=== PATIENT | female | born 1995 | race Caucasian/White ===

== ENCOUNTER 2018-07-24 08:01 | Emergency (ER) | payer OTHER, SELFPAY ==
[2018-07-24 08:02] VITALS: BP 148/94; PULSE 108; RESP 20; TEMP 36.2; O2SAT 97; BMI 45.3
--- NOTE | 2018-07-24 08:11 | EKG12_ITS ---
Test Reason : ANXIETY Blood Pressure : / mmHG Vent. Rate : 077 BPM Atrial Rate : 077 BPM P-R Int : 144 ms QRS Dur : 166 ms QT Int : 422 ms P-R-T Axes : 038 -49 090 degrees QTc Int : 477 ms Atrial-sensed ventricular-paced rhythm Abnormal ECG Confirmed by LUDIN RAMIREZ ([id number]), tape editor ANTHONY ESPINOZA ([id number] on 07/30/2018 2:44:34 PM Referred By: TERRI Confirmed By:LUDIN RAMIREZ
--- NOTE | 2018-07-24 08:12 | ED.VISSUMM ---
- ER Visit Summary Date of Service: 07/24/18 Chief Complaint: Anxiety History of Present Illness: The patient is a 22 F with history of anxiety who presents with increasing symptoms. 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 She states when she gets ill, she really starts to panic. She states that her daughter had stomach flu and she feels like she may be getting sick. She had one episode of diarrhea this morning. There was no blood in it. She denies abdominal pain. She states that she recently increased her dose of Zoloft from 50 mg to 100 mg within the past week. She is worried that she may just be adjusting to the medications and is not working. She denies being suicidal homicidal. She denies any chest pain. Physical Examination: Vital signs reviewed General: Well-nourished, well-developed Head: Normocephalic, atraumatic Eyes: Pupils equal and reactive, extraocular muscles intact Neck, supple, no lymphadenopathy Heart: Regular rate and rhythm Respiratory: No distress, clear bilaterally Abdomen: Soft, nontender, nondistended, no peritoneal signs Back: Nontender Extremities: Nontender, no edema, no cords Skin: Normal color no rash Neuro: Alert and oriented, no focal or lateralizing deficits Test Results: [] Emergency Department Course and Treatment: The patient is under a significant amount of stress. She is scheduled to have her pacemaker interrogated on Saturday. She states that she has been trying to put it out of her mind but feels like her anxiety has been very difficult to control. She is also been having some issues at work. I do feel that this is all anxiety driven and mediated. I did obtain an EKG. There is no evidence of pacemaker abnormality. She has an AV sensed rhythm with normal conduction. I obtained a chest x-ray which is also unremarkable. A long discussion with the patient. She was agreeable for laboratory evaluation. She was given oral Zofran and Ativan on reevaluation is resting much more comfortably. Her labs were obtained. The patient also has had a relatively new increase in her Zoloft and I do not feel that she is fully adjusted to this dose yet. The patient's labs were unremarkable. She is resting comfortably. We are going to arrange for outpatient counseling services for the patient. She will be discharged home. Treatment Plan: [] Disposition: Discharge Impression: 1. Acute anxiety This note was generated with [employer]isle[employer] dictation software. It may contain incorrect words, spelling, and punctuation that were not noted in review of the chart prior to signing ED Disposition - Plan for ED Patient: Chief Complaint: Anxiety Instructions: ED Stress React Referrals: Dariel Giron NP-C [Primary Care Provider] -
--- NOTE | 2018-07-24 08:30 | RAD_ITS ---
STUDY: X-RAY CHEST REASON FOR EXAM: Female, 22 years old. Chest pain. TECHNIQUE: PA and lateral views. COMPARISON: 07/14/2015. FINDINGS: Left subclavian approach dual chamber pacing lead tips are in the right atrium and right ventricle. The lungs are clear and expanded. There is no demonstrated pleural abnormality. Normal size heart. Normal mediastinum and tasia. Normal visualized pulmonary arteries. Normal visualized aortic arch and descending thoracic aorta. Minimal anterior wedging of the T12 superior endplate is presumably from remote injury. Normal visualized ribs, clavicles, and shoulders. There is no demonstrated abnormality of the visualized soft tissue structures of the upper abdomen. RAD/Chest PA and Lateral IMPRESSION: 1. Normal x-ray examination of the chest. 2. No significant interval changes when compared to 07/14/2015. Electronically Signed: Daljit Aviles MD at 9:05 EST , Service support ,
[2018-07-24] MEDS: LORazepam 1 MG Tablet PO (08:41)
[2018-07-24] MEDS: Ondansetron ODT 4 MG Tablet PO (08:41)
[2018-07-24 09:45] LABS: Absolute Lymphocyte Count 1.58 X10^3/ul (0.83-4.51); Absolute Neutrophil Count 4.5 X10^3/uL (2.0-7.7); Basophil# 0.01 X10^3/uL; Basophil% 0.2 % (0-1); Eosinophil# 0.05 X10^3/uL; Eosinophils% 0.8 % (0-5); Hematocrit 43.6 % (37-47); Hemoglobin 14.6 g/dl (12.0-15.0); Lymphocyte # 1.58 X10^3/ul (4.0); Lymphocyte % 24.4 % (19-41); Mean Corp Hgb Conc 33.5 g/gl (32-36); Mean Corpuscular Hgb 27.8 pg (27.0-32.0); Mean Platelet Vol. 9.1 fl (6.2-12.0); Monocyte# 0.37 X10^3/uL; Monocyte% 5.7 % (0-10); Neutrophil # 4.46 X10^3/uL (2.7-7.7); Neutrophil % 68.9 % (47-70); Platelet Count 338 K/mm3 (150-450); RBC Distribution Width SD 38.8 fl (35.1-43.9); Red Blood Count 5.25 M/mm3 (4.2-5.4); White Blood Count 6.5 K/mm3 (4.4-11.0)
[2018-07-24 09:55] LABS: POSITIVE COUNT NO; POSITIVE DIFFERENTIAL NO; POSITIVE MORPHOLOGY NO
--- NOTE | 2018-07-24 10:00 | CM.ED ---
SOCIAL WORK ASSESSMENT REFERRAL DATE: 07/24/18 DATE OF ASSESSMENT: 07/24/18 INFORMANT: SELF REFERRAL REASON FOR CONSULT: PT IN WITH ANXIETY INFORMATION OBTAINED FROM: PT, PT'S MOTHER AND GRANDMOTHER. LIVING ARRANGEMENTS: PT LIVES WITH FAMILY IN A 2 STORY HOME. PT AND MOTHER REPORT PT, PT'S AND 3 Y/O DAUGHTER LIVE ON THE 2ND LEVEL AND MOTHER LIVES ON 1ST FLOOR. 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 PT STATES WORK SCHEDULE IS 7:30A-1:45P. SUPPORTS: PT STATES GOOD SUPPORT FROM FAMILY AND . SOCIAL/FAMILY STRESSORS: PT REPORTS STRESS IN WORK AND HOME D/T MENTAL HEALTH. MENTAL HEALTH HX: PT WITH SIGNIFICANT HX OF ANXIETY. MOTHER AND GRANDMOTHER STATE DEPRESSION AND ANXIETY RUN IN THE FAMILY. GRANDMOTHER REPORTS PT, A CHILD, NEVER WANTED TO BE ALONE AND STRUGGLED WITH ANXIETY. PT VOICES ANXIETY WHEN DRIVING AND WHEN BEING LEFT ALONE. PT REPORTS EARLIER THIS WEEK SAT IN FRONT OF THE DOOR TO THEIR HOUSE AND BEGGED HER MOTHER NOT TO LEAVE FOR WORK. PT STATES HER ANXIETY CAN BE OVERWHELMING. PT STATES DOES NOT CURRENTLY FOLLOW WITH A COUNSELOR AND PCP IS PRESCRIBING HER MEDICATIONS. DIAGNOSES: ANXIETY MEDICATIONS: ZOLOFT, BUSPAR, ATIVAN SUBSTANCE ABUSE HX: PT DENIES ANY HX OF SUBSTANCE ABUSE AND STATES WORRIES ABOUT TAKING ATIVAN AND OTHER PRESCRIBED MEDICATIONS SHE DOES NOT WANT TO BECOME ADDICTED. EDUCATION ON MEDICATIONS PROVIDED. INTERVENTIONS: EDUCATION ON MENTAL HEALTH AND PHYSICAL HEALTH, MEDICATIONS, AND HEALTHY COPING. PT OPEN TO COUNSELING AND REQUESTS THIS WORKER SET UP APPOINTMENT. ASSESSMENT: PT IS A 22 Y/O FEMALE WHO PRESENTS TO THE ED WITH ANXIETY. PT STATES HAS BEEN FOLLOWING WITH JENNI DOMINIQUE WHO HAS BEEN PRESCRIBING HER MEDICATIONS. PT RECENTLY SWITCHED FROM LEXAPRO TO ZOLOFT AND PHYSICIAN ADDED BUSPAR AND ATIVAN. PT VOICES WORRY OVER TAKING ATIVAN D/T POSSIBILITY OF BECOMING ADDICTED TO THE MEDICATION. MUCH EDUCATION AND SUPPORT PROVIDED. PT AND FAMILY DENY ANY HX OF SUBSTANCE ABUSE FOR PT. PT'S GRANDMOTHER AND MOTHER WERE PRESENT FOR ASSESSMENT WITH PT'S PERMISSION. GRANDMOTHER AND MOTHER VOICE CONCERNS THAT PT'S ANXIETY IS MUCH WORSE AND HAS REALLY COME TO A HEAD THIS PAST WEEK. PT DENIES ANY SI OR HI. PT STATES IS NOT CURRENTLY FOLLOWING UP WITH COUNSELING SERVICES AND IS OPEN TO THIS WORKER SETTING UP INTAKE APPOINTMENT AT THE COUNSELING CENTER. DISCUSSED D/T HOLIDAYS MAY HAVE ISSUE WITH APPOINTMENT. PT AND FAMILY VERBALIZED UNDERSTANDING. CALL TO THE COUNSELING CENTER. APPOINTMENT SCHEDULED FOR 08/15/17 AT 8:30A. NURSING UPDATED AND IS TO UPDATE PT AND FAMILY. PLAN: HOME BEFORE WITH INTAKE APPOINTMENT SCHEDULED AT THE COUNSELING CENTER FOR 08/15/17 AT 8:30A.
[2018-07-24 10:10] LABS: AST(SGOT) 30 U/L (15-37); Alanine Aminotransfer ALT/SGPT 53 U/L (13-56); Albumin, Serum 4.3 g/dL (3.2-5.0); Alkaline Phosphatase 110 U/L (45-117); Anion Gap 8 (5-15); BUN 9 mg/dL (7-18); BUN/Creat Ratio 11.4 RATIO (10-20); Calcium,Total 9.4 mg/dL (8.5-10.1); Chloride 105 mmol/L (98-107); Creatinine, Serum 0.79 mg/dL (0.55-1.02); EST Glomerular Filtration Rate 95 mL/min (>60); Est Glom Filt Rate - Afr Amer 115 mL/min (>60); Estimated Creatinine Clearance 82.86 ml/min; Globulin 4.2 g/dL (2.2-4.2); Glucose 93 mg/dL (74-106); Potassium 3.7 mmol/L (3.5-5.1); Protein, Total 8.5 g/dL (6.4-8.2); Sodium Level 140 mmol/L (136-145)
[2018-07-24 11:34] VITALS: BP 140/88; PULSE 88; RESP 18; O2SAT 98
== END 2018-07-24 11:36 | disposition home or self-care (01) ==
LOC: ED 08:26
PROVIDERS: Emergency Provider Emergency Medicine; Family Provider Nurse Practitioner Primary Care; PCP Nurse Practitioner Primary Care
DX: F41.9 Anxiety disorder, unspecified (principal); F43.9 Reaction to severe stress, unspecified; R19.7 Diarrhea, unspecified; R11.0 Nausea; I44.2 Atrioventricular block, complete; Z79.899 Other long term (current) drug therapy; Z95.0 Presence of cardiac pacemaker
CPT/HCPCS: 36415; 71046; 80053; 85025; 93005; 99284

== ENCOUNTER 2018-08-18 10:50 | Emergency (ER) | payer OTHER, SELFPAY ==
[2018-08-18 10:53] VITALS: BP 128/76; PULSE 97; RESP 18; TEMP 36.8; O2SAT 95; BMI 45.8
[2018-08-18 10:58] VITALS: BP 128/76; PULSE 104; RESP 14; O2SAT 96
--- NOTE | 2018-08-18 11:06 | EKG12_ITS ---
Test Reason : SYNCOPE Blood Pressure : / mmHG Vent. Rate : 081 BPM Atrial Rate : 081 BPM P-R Int : 146 ms QRS Dur : 166 ms QT Int : 414 ms P-R-T Axes : 048 -55 077 degrees QTc Int : 480 ms Normal sinus rhythm Left axis deviation Non-specific intra-ventricular conduction block Possible Lateral infarct , age undetermined Abnormal ECG Confirmed by DAILY BOWENS, LEVI ([id number]), electronic news gathering editor ANTHONY ESPINOZA ([id number]) on 08/19/2018 5:24:47 PM Referred By: ZEKE Confirmed By:LEVI AMBROSIO MD
[2018-08-18 11:34] LABS: Absolute Lymphocyte Count 1.92 X10^3/ul (0.83-4.51); Absolute Neutrophil Count 4.7 X10^3/uL (2.0-7.7); Basophil# 0.02 X10^3/uL; Basophil% 0.3 % (0-1); Eosinophils% 1.4 % (0-5); Hematocrit 45.5 % (37-47); Hemoglobin 15.1 g/dl (12.0-15.0); Lymphocyte # 1.92 X10^3/ul (4.0); Lymphocyte % 27.1 % (19-41); Mean Corp Hgb Conc 33.2 g/gl (32-36); Mean Corpuscular Hgb 27.5 pg (27.0-32.0); Mean Corpuscular Volume 82.9 fL (81-99); Mean Platelet Vol. 9.6 fl (6.2-12.0); Monocyte# 0.37 X10^3/uL; Monocyte% 5.2 % (0-10); Neutrophil # 4.67 X10^3/uL (2.7-7.7); Neutrophil % 65.9 % (47-70); Platelet Count 378 K/mm3 (150-450); RBC Distribution Width CV 13.1 % (11.6-14.6); RBC Distribution Width SD 39.7 fl (35.1-43.9); Red Blood Count 5.49 M/mm3 (4.2-5.4); White Blood Count 7.1 K/mm3 (4.4-11.0)
[2018-08-18 11:35] LABS: POSITIVE COUNT NO; POSITIVE DIFFERENTIAL NO; POSITIVE MORPHOLOGY NO
[2018-08-18 11:48] LABS: Anion Gap 9 (5-15); BUN 14 mg/dL (7-18); BUN/Creat Ratio 18.8 RATIO (10-20); Calcium,Total 9.3 mg/dL (8.5-10.1); Chloride 103 mmol/L (98-107); Creatinine, Serum 0.75 mg/dL (0.55-1.02); EST Glomerular Filtration Rate 101 mL/min (>60); Est Glom Filt Rate - Afr Amer 122 mL/min (>60); Estimated Creatinine Clearance 87.28 ml/min; Glucose 85 mg/dL (74-106); Potassium 3.7 mmol/L (3.5-5.1); Sodium Level 138 mmol/L (136-145)
--- NOTE | 2018-08-18 12:26 | CT_ITS ---
STUDY: CTA CHEST REASON FOR EXAM: Female, 22 years old. Syncopal episode. RADIATION DOSAGE (If Supplied By Facility): CTDIvol = ( 16.72 ) mGy, DLP = ( 749.29 ) mGycm TECHNIQUE: The examination was performed with the intravenous administration of 100CC ml of Isovue 370 contrast material. Post-processing of the angiographic images was performed, with multiplanar reformation and 3D reconstruction. Individualized dose optimization techniques were used for this CT. COMPARISON: None. FINDINGS: Normal enhancement of the main pulmonary artery and right and left pulmonary arteries. Normal enhancement of the bilateral peripheral pulmonary arteries. There is no demonstrated pulmonary embolism. Normal thoracic aorta and visualized great vessels. There is no demonstrated aortic dissection. Normal heart and pericardium. Normal mediastinum. Normal hilar regions. Normal visualized trachea and bronchi. The lungs are well expanded. Normal pulmonary parenchyma. Normal pleura. Normal chest wall structures. Normal osseous structures. Small hiatal hernia. CT/CTA Chest W/WO Contrast IMPRESSION: Normal CTA chest examination, without a demonstrated pulmonary embolism or arterial dissection. Electronically Signed: Reji Burr MD at 13:32 EST Tel [phone], Service support ,
--- NOTE | 2018-08-18 14:02 | ED.VISSUMM ---
- ER Visit Summary Date of Service: 08/18/18 Chief Complaint: Syncope History of Present Illness: The patient is a 22 F who is arriving by squad following a syncopal episode. 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 She states that she lost vision in her eyes quite lightheaded and got nauseated and believes that she lost consciousness. She states that she improved and went to the nurse who felt that she was fine so she called her family doctor's office to schedule a follow-up appointment and they advised her that she might be having a stroke to come to the emergency room by the ambulance. She has a history of third-degree heart block and has a pacemaker. She follows at [facility]. Her right foot and ankle is in a boot orthosis due to fracture. She denies any chest pain or shortness of breath. Physical Examination: Afebrile vital signs are stable Gen: Well-nourished well-developed Head: Normocephalic atraumatic Eyes: Perrl EOMI ENT: TMs clear no rhinorrhea moist mucous membranes Neck: Supple no lymphadenopathy no JVD nontender CVS: Regular rate rhythm no murmurs normal S1-S2 Respiratory: No distress clear to auscultation bilaterally chest nontender Abdomen: Soft nontender nondistended normal bowel sounds no masses Back: Nontender Extremity: Nontender no edema Skin: Normal color no rash Neuro: alert orientated ?3 CN II-XII intact normal strength sensation reflexes gait cerebellar Psych: Normal affect normal mood Test Results: Prehospital EKG shows a paced rhythm. Her maker appears to be working here in the department. CBC BMP and troponin are negative. CTA of the chest was obtained to rule out PE as a source of syncope due to the lower extremity fracture and immobilization. This was negative. Emergency Department Course and Treatment: Nursing reports that while they are working with her she had another syncopal event. A cycle her blood pressure and it was actually higher than what it had been. She remained in a paced rhythm on the monitor. And she recovered. This would at least suggest that this was noncardiac and possible patient is otherwise been stable and should be discharged home to follow-up with her doctors Impression: 1. Syncope This note was generated with Dream Industriesation software. It may contain incorrect words, spelling, and punctuation that were not noted in review of the chart prior to signing ED Disposition - Plan for ED Patient: Disposition: Home or Assisted Living Chief Complaint: Syncope Instructions: ED Fainting Unkn Cause Referrals: Dariel Giron NP-C [Primary Care Provider] - 1 Week
[2018-08-18 14:19] VITALS: BP 109/65; PULSE 75; RESP 14; O2SAT 97
== END 2018-08-18 14:20 | disposition home or self-care (01) ==
PROVIDERS: Emergency Provider Emergency Medicine; Family Provider Nurse Practitioner Primary Care; PCP Nurse Practitioner Primary Care
DX: R55 Syncope and collapse (principal); Z95.0 Presence of cardiac pacemaker; Z79.899 Other long term (current) drug therapy
CPT/HCPCS: 71275; 80048; 84484; 85025; 93005; 99285; Q9967; A4216

== ENCOUNTER → 2018-09-09 08:51 | Outpatient (CLI) | payer OTHER, SELFPAY ==
[2018-08-18 10:53] VITALS: BMI 45.8
--- NOTE | 2018-09-10 17:41 | PCM.TILTTABL ---
- Summary Pre Test Resting HR: 87 Pre Test Resting BP: 124/75 Minimum Test HR: 73 Maximum Test HR: 162 Maximum Test BP: 138/65 Physician Tilt Table Report - Patient's Physicians Primary Care Physician: Alie Mejía Indications/Diagnosis: Syncope. Procedure Comments: The patient was brought to the noninvasive lab in the postabsorptive nonsedated state. The initial blood pressure was noted to be 124/75 mmHg with a heart rate of 87 bpm. The patient was then placed in the upright tilt position for 20 minutes. Patient complained of feeling clammy though her blood pressure and heart rate remained stable. After this the patient was put back in the recumbent position was given sublingual nitroglycerin and stood back up. Patient started feeling dizzy with increasing her heart rate to a peak of 162 bpm and dropping her blood pressure. She became diaphoretic and clammy. She was put back in the recumbent position with improvement in her heart rate and blood pressure. Of note was the fact that the patient has a permanent pacemaker and thus the minimum heart rate was noted to be 70 bpm. During post nitro evaluation the patient was noted to be in a sinus tachycardia with a left bundle branch pattern. Summary: The above appears to be consistent with an orthostatic or [place] physiology.
[2018-09-10 17:45] VITALS: BP 124/75; BP 138/65
== END ==
PROVIDERS: Family Provider Internal Medicine; PCP Internal Medicine; Referring Provider Internal Medicine; Visit Provider Internal Medicine
DX: R00.2 Palpitations (principal); R42 Dizziness and giddiness; F41.9 Anxiety disorder, unspecified
CPT/HCPCS: 93660; J7040; A4216

== ENCOUNTER 2018-10-30 05:38 | Day surgery (SDC) | payer OTHER, SELFPAY ==
[2018-10-08 14:40] VITALS: BMI 42.1
[2018-10-08 16:14] VITALS: BMI 45.8
[2018-10-29 08:59] VITALS: BP 129/72; PULSE 74; RESP 16; TEMP 36.8; O2SAT 97; BMI 43.9
--- NOTE | 2018-10-29 09:20 | SDCEKG_ITS ---
Test Reason : Blood Pressure : / mmHG Vent. Rate : 068 BPM Atrial Rate : 068 BPM P-R Int : 176 ms QRS Dur : 136 ms QT Int : 426 ms P-R-T Axes : 039 -54 035 degrees QTc Int : 452 ms Electronic ventricular pacemaker Confirmed by DAILY BOWENS, LEVI ([id number]), market editor TAWANDA CATES ([id number]) on 10/30/2018 1:17:00 PM Referred By: Elliott Naidu Confirmed By:LEVI AMBROSIO MD
[2018-10-30 06:07] LABS: Internal QC Validated? YES +Cl - CLEAR BKGD; Pregnancy, Urine Negative Negative
[2018-10-30 06:12] VITALS: BP 133/85; PULSE 75; RESP 16; TEMP 37.2; O2SAT 98; BMI 43.9
--- NOTE | 2018-10-30 07:15 | GALL_PTH ---
PATIENT: HALI CHAVES [place] [facility] [id number] AGE/SX: 22/ ROOM: RE10/30/[address]: Dr. Elliott Naidu MD : 1995 BED: DIS: 10/30/2018 SPEC #: [id number] RECD: 10/30/18 10:16 STATUS: ASHLEY CUCA #: [id number] AMARI: 10/30/18 07:[address]: Elliott Naidu DEPT: SURGICAL PATHOLOGY RECD BY: Eliseo Danielle ENTERED: 10/30/18 11:08 SP TYPE: MARCI SERRANO DR: Dr. Alie Mejía MD Tissues: Gallbladder, NOS Procedures: Surgery Specimen Level III HEADER OPERATION: Laparoscopic cholecystectomy PRE-OP DIAGNOSIS: Gallbladder sludge, right upper quadrant abdominal pain TISSUE SUBMITTED: Gallbladder MICROSCOPIC DIAGNOSIS Gallbladder, cholecystectomy: Mild chronic cholecystitis and cholesterolosis. No stones are identified in the container or in the gallbladder. SJ:adri 10/31/18 MICROSCOPIC DESCRIPTION Slides are reviewed. GROSS DESCRIPTION Received is one container labeled with the patient's name and designated gallbladder. The specimen consists of a gallbladder measuring 8.5 x 3 x 3 cm. The external surface is smooth and glistening. Focally, it is granular, hemorrhagic and contains cautery artifact. The lumen of the gallbladder contains yellow-green mucoid bile and no calculi. The mucosa is bile-stained and without any mass lesions. The gallbladder wall averages 0.1 cm in thickness and is free of mass lesions. Street Light Repairer sections of the gallbladder and the cystic duct are submitted in one cassette. / AM:adri 10/30/18 TC:3 CPT: 51898
[2018-10-30] MEDS: Cefazolin 2 GM in 0.9% Normal Saline 100 ML IV (07:20)
--- NOTE | 2018-10-30 07:33 | DCINST_ITS ---
Discharge Diet: Light diet - advance as tolerated Discharge Activity: May Not Drive - for 2-3 days or while taking narcotic pain medications., - - Do not drive, work heavy equipment or sign legal documents for 24 hours. May shower in (days): 1 - with the bandage in place. Additional Activity Instructions:: Pain medication may cause nausea. You should typically eat light foods as you take your pain medications. Pain medication may also cause constipation. If this is a problem for you, please discuss with your doctor. Call your doctor if your incision/area has: Continuous Slow Oozing, Sudden Increased Bleeding, Increased Pain/ Swelling, Increased Redness, Foul Smelling Discharge Call your doctor if you observe: Fever of 101 or Higher Suture Line Care: Avoid Pulling/Pushing, Avoid Pinching/Bending Additional Dressing/Incision Instructions:: Leave operative bandaids on for 2 days. When you remove dressing, leave Steri-Strips on until your follow-up appointment, or until the Steri-Strips fall off on their own. Allergies/Adverse Reactions: Allergies No Known Allergies Allergy (Verified 10/30/18 06:18) Medications to take at Discharge Lorazepam [Ativan] 1 mg PO TID PRN #10 tab 02/09/17 Ondansetron [Zofran Odt] 4 mg PO Q8H PRN PRN #10 tab 02/09/17 Buspirone HCl 10 mg PO QHS 08/18/18 Sertraline HCl [Zoloft] 150 mg PO QHS 08/18/18 Oxycodone HCl/Acetaminophen [Percocet 5/325] 1 - 2 tab PO Q4H PRN PRN 6 Days #30 tab 10/30/18 The following prescriptions were given: Oxycodone HCl/Acetaminophen [Percocet 5/325] 1 - 2 tab PO Q4H PRN PRN 6 Days #30 tab PRN Reason: Pain Primary Care Physician: Alie Mejía MD [Primary Care Provider] - Test Results: Test results from this visit will be discussed in further detail at your follow- up appointment, if applicable. Please Follow Up With: Elliott Naidu MD - Please call [phone] to schedule an appointment. When: 7 days after your surgery.
--- NOTE | 2018-10-30 07:33 | PCM.OPRPT ---
Problem List (1) Gallbladder sludge Status: Acute (2) Right upper quadrant abdominal pain Status: Acute Report of Operation Date of Procedure: 10/30/18 Pre-Operative Diagnosis: Gallbladder sludge. Right upper quadrant abdominal pain Post-Operative Diagnosis: Same Surgery/Procedure Performed:: Laparoscopic cholecystectomy Type of Anesthesia:: General Anesthesiologist: Miguel Masterson Specimen's removed: Gallbladder Estimated Blood Loss (mL): < 25 cc Fluids Replaced: 600 cc Description of Procedure: Patient was brought into the operating room. Placed in the supine position. Under excellent general endotracheal intubation the abdomen was sterilely prepped and draped in the usual fashion. Local was injected infraumbilically. Dissection was carried down to the fascia. The fascia was grasped with a [place]. Varies needle was placed inside the abdomen. The abdomen was insufflated to 15 torr. A 10/12 trocar was placed without difficulty. Patient was placed in the head up and rotated to the left position. A subxiphoid #5 trochars placed. Inferior to this another #5 trocar was placed. Laterally a #5 trocar was placed. All of these under direct visualization without injury to underlying structures. Fundus of the gallbladder was grasped retracted in a cephalad direction. Moderate amount of adhesions were taken off the gallbladder. I dissected the cystic duct and cystic artery and they were so close together and so small I clipped them both with he will out hemoclips proximally and distally. I ligated both the artery and the duct together. Deliver the gallbladder from the gallbladder bed I had good hemostasis. I placed a specimen specimen bag and delivered it through the umbilical port. Reinflated the abdomen. Inspected the liver bed. Good hemostasis was noted. I removed the trochars under direct visualization good hemostasis was noted. I closed the fascia the umbilical port with 0 Vicryl. Skin incisions were closed with septicum stitches of 4-0 Monocryl. Steri-Strips are applied. Sterile dressings were applied. The patient tolerated the procedure well. - Admit VTE Documentation VTE Present on Admission: No VTE Mechan Device Prophylaxis: SCD's VTE Pharm Prophylaxis ordered?: No Reason prophylaxis not ordered:: Treatment Not Indicated
[2018-10-30] MEDS: Bupivacaine Mpf 0.5% 30 ML VIAL (07:39)
[2018-10-30 08:18] VITALS: BP 109/85; BP 133/85; PULSE 72; RESP 16; TEMP 37.1; O2SAT 96
[2018-10-30 08:30] VITALS: BP 109/57; BP 133/85; PULSE 67; RESP 16; O2SAT 98
[2018-10-30 08:43] VITALS: BP 114/75; BP 133/85; PULSE 59; RESP 16; TEMP 36.2; O2SAT 96
[2018-10-30] MEDS: Acetaminophen 325 MG Tablet PO (08:55)
[2018-10-30] MEDS: oxyCODONE 5 MG Tablet PO (08:55)
[2018-10-30 10:00] VITALS: BP 102/48; BP 133/85; PULSE 55; RESP 16; TEMP 36.6; O2SAT 98
== END 2018-10-30 10:03 | disposition home or self-care (01) ==
LOC: SDC 05:39 → AC 05:39
PROVIDERS: Anesthesiology; Family Provider Internal Medicine; PCP Internal Medicine; Referring Provider Surgery; Visit Provider Surgery
PROC: (CPT 47562; principal; 2018-10-30 06:55)
DX: K81.1 Chronic cholecystitis (principal); K59.00 Constipation, unspecified; K21.9 Gastro-esophageal reflux disease without esophagitis; F41.9 Anxiety disorder, unspecified; Z79.899 Other long term (current) drug therapy; Z95.0 Presence of cardiac pacemaker; Z87.11 Personal history of peptic ulcer disease
CPT/HCPCS: 00790; 47562; 81025; 88304; 93005; J7120; J2405

== ENCOUNTER 2018-11-02 17:49 | Emergency (ER) | payer OTHER, SELFPAY ==
[2018-11-02 17:50] VITALS: BP 137/78; PULSE 73; RESP 18; TEMP 36.4; O2SAT 99; BMI 44.3
[2018-11-02 18:01] VITALS: O2SAT 96
--- NOTE | 2018-11-02 18:25 | ED.VISSUMM ---
- ER Visit Summary Date of Service: 11/02/18 Chief Complaint: Right shoulder pain, shortness of breath History of Present Illness: The patient is a 22 F who had a lap sandi on October 30. Patient states she woke from surgery with right shoulder pain. She took her Percocet as prescribed the first 2 days but stopped taking the medication today. She states today the right shoulder pain is worse. She initially had reported to nursing staff that she had some shortness of breath. She denies shortness of breath to me, but states that her shoulder moves when she takes a deep breath and that makes her shoulder hurt. She does not have any pleuritic chest pain. Physical Examination: Vital signs are unremarkable. Her respiratory rate is 18 and her pulse ox is 99% on room air. Patient is sitting upright in bed no acute distress. She is alert and talkative in no distress. Heart is regular rate and rhythm. Lung sounds are clear. Abdomen is soft with minimal tenderness. Incisions are healing well with no sign of infection. Right upper extremity examination was tenderness over the right suprascapular muscles. She has full range of motion of the right upper extremity. She has strong distal pulses and normal sensation. Test Results: [] Emergency Department Course and Treatment: We discussed possibility of right diaphragm irritation causing right shoulder pain as well as possible PE as the patient is a recent postop. Patient is quite adamant that she woke up from surgery with this pain and believes it is positional as her arm was held out to her side. We discussed risks and benefits of obtaining a CTA of the chest and she wishes to avoid that at this time. Her pain is reproducible over the musculature in the shoulder and she did stop her Percocet which likely led to her pain worsening today. Patient will restart her Percocet at home. We discussed tapering it slowly. She has a follow-up appointment with Dr. Naidu in 3 days. Treatment Plan: [] Disposition: Discharge Impression: Musculoskeletal right shoulder pain This note was generated with Un[employer] dictation software. It may contain incorrect words, spelling, and punctuation that were not noted in review of the chart prior to signing ED Disposition - Plan for ED Patient: Referrals: Alie Mejía MD [Primary Care Provider] -
--- NOTE | 2018-11-02 18:28 | ED.DEP ---
ED Disposition - Plan for ED Patient: Disposition: Home or Assisted Living Instructions: ED Sprain Shoulder Referrals: Elliott Naidu MD [STAFF PHYSICIAN] - Keep [facility] appointment
== END 2018-11-02 18:46 | disposition home or self-care (01) ==
LOC: ED 18:42
PROVIDERS: Emergency Provider Emergency Medicine; Family Provider Internal Medicine; PCP Internal Medicine
DX: M25.511 Pain in right shoulder (principal); R10.9 Unspecified abdominal pain; G89.18 Other acute postprocedural pain; F41.9 Anxiety disorder, unspecified; K21.9 Gastro-esophageal reflux disease without esophagitis; Z90.49 Acquired absence of other specified parts of digestive tract; Z79.899 Other long term (current) drug therapy
CPT/HCPCS: 99282

== ENCOUNTER → 2019-02-12 09:27 | Outpatient (CLI) | payer OTHER, SELFPAY ==
[2019-02-12 10:56] LABS: hCG Titer Quant., Serum 1432 mIU/mL (1-3)
== END ==
LOC: PAVLAB 09:28
PROVIDERS: Family Provider Internal Medicine; PCP Internal Medicine; Referring Provider Obstetrics & Gynecology; Visit Provider Obstetrics & Gynecology
DX: Z34.90 Encounter for supervision of normal pregnancy, unspecified, unspecified trimester (principal)
CPT/HCPCS: 36415; 84702; 86850; 86900

== ENCOUNTER → 2019-02-14 07:53 | Outpatient (CLI) | payer OTHER, SELFPAY ==
[2019-02-14 08:56] LABS: hCG Titer Quant., Serum 2908 mIU/mL (1-3)
== END ==
LOC: LAB 07:56
PROVIDERS: Family Provider Internal Medicine; PCP Internal Medicine; Referring Provider Obstetrics & Gynecology; Visit Provider Obstetrics & Gynecology
DX: Z34.90 Encounter for supervision of normal pregnancy, unspecified, unspecified trimester (principal)
CPT/HCPCS: 36415; 84702

== ENCOUNTER 2019-03-03 16:04 | Emergency (ER) | payer OTHER, SELFPAY ==
[2019-03-03] VITALS (7 sets, daily range): BP systolic 112–133; BP diastolic 59–73; PULSE 68–88; RESP 16–18; TEMP 37.1; O2SAT 90–100; BMI 43.7
[2019-03-03 16:49] LABS: Absolute Lymphocyte Count 2.61 X10^3/uL (0.83-4.51); Absolute Neutrophil Count 4.9 X10^3/uL (2.0-7.7); Basophil# 0.04 X10^3/uL; Basophil% 0.5 % (0-1); Eosinophil# 0.09 X10^3/uL; Eosinophils% 1.1 % (0-5); Hemoglobin 12.6 g/dL (12.0-15.0); Lymphocyte # 2.61 X10^3/ul (4.0); Lymphocyte % 32.2 % (19-41); Mean Corp Hgb Conc 33.2 g/dL (32-36); Mean Corpuscular Hgb 27.8 pg (27.0-32.0); Mean Corpuscular Volume 83.9 fL (81-99); Mean Platelet Vol. 9.4 fl (6.2-12.0); Monocyte# 0.44 X10^3/uL; Monocyte% 5.4 % (0-10); NRBC Flagged by Analyzer 0 % (0-5); Neutrophil # 4.91 X10^3/uL (2.7-7.7); Neutrophil % 60.7 % (47-70); Platelet Count 316 K/mm3 (150-450); RBC Distribution Width CV 13.2 % (11.6-14.6); RBC Distribution Width SD 40.2 fl (35.1-43.9); Red Blood Count 4.53 M/mm3 (4.2-5.4); White Blood Count 8.1 K/mm3 (4.4-11.0)
--- NOTE | 2019-03-03 16:55 | EKG12_ITS ---
Test Reason : SOB Blood Pressure : / mmHG Vent. Rate : 071 BPM Atrial Rate : 071 BPM P-R Int : 144 ms QRS Dur : 166 ms QT Int : 440 ms P-R-T Axes : 041 -62 075 degrees QTc Int : 478 ms Atrial-sensed ventricular-paced rhythm Abnormal ECG Confirmed by NISH BOWENS, PIPE ([id number]), editorial assistant TAWANDA CATSE ([id number]) on 03/05/2019 1:35:06 PM Referred By: SERAFIN/PAUL Confirmed By:PIPE MOCK MD
--- NOTE | 2019-03-03 16:57 | ED.VIS.GEN ---
History of Present Illness Chief Complaint: Shortness of Breath Informant: Patient Onset: Today, Hours Context: Sudden Onset Timing: Continuous Quality: Difficulty breathing and shortness of breath Location: Not applicable Current Severity: Mild Maximum Severity: Severe Worsened by: Nothing Relieved by: Nothing Associated Symptoms: No associated symptoms Narrative: Patient is a 23-year-old female with history of pots and third-degree heart block with placement of pacemaker 7 years ago who presents because of shortness of breath that occurred this morning after walking to [employer]. She became abruptly short of breath. She still complains of shortness of breath. She had obvious respiratory distress according to mother. She denies fever, chills night sweats. She denies runny nose, congestion, postnasal drainage or sore throat. She denies cough. She denies history of PE or DVT. She denies leg pain, swelling or discoloration. She is , 7 weeks gestation. This is her second . There is no complication with the first . Prior similar symptoms: No Recent Illness/Hospitalization: No - Past Medical History (1) POTS (postural orthostatic tachycardia syndrome) Status: Acute (2) Acid reflux Status: Acute (3) Anxiety Status: Acute (4) Gallbladder sludge Status: Acute (5) Hx of cardiac pacemaker Status: Acute Comment: 03/12/13 Past Medical History - Allergies and Home Meds Allergies/Adverse Reactions: Allergies No Known Allergies Allergy (Verified 03/03/19 16:04) Primary Care Physician: Alie Mejía MD [Primary Care Provider] - Prior records reviewed: Yes Lives: Spouse/ Significant Other, With Family Smoking Status: Never smoker Alcohol: None Drugs: None Review of Systems General: Denies: Chills, Fever, Malaise, Subjective, Sweats Eyes: Denies: Visual changes - bilaterally, Blurred Vision - bilaterally, Diplopia ENT: Denies: Bilateral ear pain, Rhinorrhea, Sore throat Cardiovascular: Denies: Chest pain, Palpitations, Heart racing Respiratory: Reports: Dyspnea. Denies: Cough, Sputum, Dyspnea on exertion, Orthopnea Gastrointestinal: Denies: Abdominal pain, Nausea, Vomiting, Diarrhea, Melena, Hematochezia Genitourinary: Denies: Dysuria, Hematuria, Frequency Musculoskeletal: Denies: Back pain, Extremity Pain Skin: Denies: Rash, Wounds Neurological: Denies: Headache, Weakness, Numbness Hematologic: Denies: Easy bruising, Easy bleeding Allergy: Denies: Uticaria, Swelling of the mouth, Swelling of the tongue Physical Exam Vital Signs/Narrative: Vital Signs Temp Pulse Resp BP Pulse Ox 03/03/19 16:07 16 97 03/03/19 16:04 98.8 F 71 18 133/73 H 97 Inital Vital Signs reviewed: Yes General: Well nourished, Well developed, No Acute Distress Head: Normocephalic, Atraumatic Eyes: Perrl, EOMI ENT: Moist mucous membranes, No rhinorrhea Neck: Supple, Nontender Cardiovascular: Regular rate, Regular rhythm, No murmurs Respiratory: No distress, Chest nontender, - - Breath sounds noted on forced expiration only. Negative for: CTA bilaterally Abdomen: Soft, Nontender, Nondistended, Normal bowel sounds Back: Nontender, Normal Inspection Extremities: Nontender, No edema, - - There is no asymmetry, swelling, discoloration, leg vein distention, palpable cords or tenderness along the distribution of the deep venous system. Skin: Normal color, No rash Neurological: Alert, Oriented x3, Cranial nerves II-XII grossly intact, Normal Strength, Normal Sensation Psychological: Normal affect, Normal Mood Diagnostic/Tx/Re-eval Chest X-Ray - ED: 2 View, Read by ED Physician, Normal, Heart, Mediastinum, Bony Structures, - - There is increased interstitial markings on the right compared to left. There is no obscuring of the heart border or diaphragm border. Impressions Chest X-Ray 03/03/19 18:01 IMPRESSION: No acute chest disease. Electronically Signed: Ever Alonzo MD at 18:17 EDT , Service support , 03/03/19 18:01 Chest PA and Lateral [RAD] Stat 03/03/19 18:36 CTA Chest W/WO Contrast [CT] Stat Laboratory Results 03/03/19 03/03/19 03/03/19 16:30 16:30 16:30 WBC 8.1 RBC 4.53 Hgb 12.6 Hct 38.0 MCV 83.9 MCH 27.8 MCHC 33.2 RDW Std Deviation 40.2 RDW Coeff of Rocael 13.2 Plt Count 316 MPV 9.4 Immature Gran % (Auto) 0.100 Neut % (Auto) 60.7 Lymph % (Auto) 32.2 [place] % (Auto) 5.4 Eos % (Auto) 1.1 Baso % (Auto) 0.5 Absolute Neuts (auto) 4.9 Absolute Lymphs (auto) 2.61 Nucleated RBC % 0 D-Dimer Quant (PE/DVT) 0.70 H* Sodium 140 Potassium 3.8 Chloride 106 Carbon Dioxide 26.0 Anion Gap 8 BUN 13 Creatinine 0.66 Estim Creat Clear Calc 98.33 Est GFR (MDRD) Af Amer 140 Est GFR (MDRD) Non-Af 116 BUN/Creatinine Ratio 19.7 Glucose 78 Calcium 9.1 With a normal chest x-ray per radiologist and concern for possible increased markings on the right by me with an elevated d-dimer will obtain CTA to evaluate for pulmonary embolus. Obtain consultation with second radiologist. She states the timing of the bolus is off and unable to evaluate for subsegmental PE. Since nurse reports she is dyspneic walking to the restroom but not hypoxic. Will discharge after she receives dose of Lovenox. Radiology will contact her for outpatient CTA of her chest. - EKG Initial EKG Interpretation: - - Atrial sensed ventricular paced rhythm with a rate of 71. MS interval is 144 ms. QS duration 166 ms. Halls to the left. - Medical Decision Making Patient is low risk for PE. D-dimer was ordered. Chest x-rays obtained because of abnormal oscillatory findings and she received an albuterol treatment. BMP was ordered per nurse protocol. CBC was ordered to assess white count and H&H. EKG was obtained per nurse protocol reveals atrial sensed ventricular paced rhythm with a ventricular rate of 71. ED Disposition - Plan for ED Patient: Disposition: Home or Assisted Living Diagnosis: Dyspnea on effort Instructions: ED Dyspnea Referrals: Alie Mejía MD [Primary Care Provider] - Additional Instructions: The radiologist will contact you and make arrangements for additional studies
[2019-03-03] MEDS: Albuterol 2.5 MG/3 ML VIAL.NEB. INHALATION (17:03)
[2019-03-03 17:05] LABS: Anion Gap 8 (5-15); BUN 13 mg/dL (7-18); BUN/Creat Ratio 19.7 RATIO (10-20); Calcium,Total 9.1 mg/dL (8.5-10.1); Chloride 106 mmol/L (98-107); Creatinine, Serum 0.66 mg/dL (0.55-1.02); EST Glomerular Filtration Rate 116 mL/min (>60); Est Glom Filt Rate - Afr Amer 140 mL/min (>60); Estimated Creatinine Clearance 98.33 ml/min; Glucose 78 mg/dL (74-106); Potassium 3.8 mmol/L (3.5-5.1); Sodium Level 140 mmol/L (136-145)
--- NOTE | 2019-03-03 17:46 | ED.RN ---
d dimer 0.[address] gaines aware
--- NOTE | 2019-03-03 18:01 | RAD_ITS ---
STUDY: X-RAY CHEST REASON FOR EXAM: Female, 23 years old. Short of breath and chest pain. TECHNIQUE: Frontal and lateral views of the chest. COMPARISON: 07/24/2018. FINDINGS: The lungs are clear and expanded. There is no demonstrated pleural abnormality. Normal size heart. Pacemaker is seen with leads terminating in the right atrium and right ventricle. Normal mediastinum and tasia. Normal visualized pulmonary arteries. Normal visualized aortic arch and descending thoracic aorta. Normal visualized thoracic spine. Normal visualized ribs, clavicles, and shoulders. There is no demonstrated abnormality of the visualized soft tissue structures of the upper abdomen. RAD/Chest PA and Lateral IMPRESSION: No acute chest disease. Electronically Signed: Ever Alonzo MD at 18:17 EDT , Service support ,
--- NOTE | 2019-03-03 18:36 | CT_ITS ---
STUDY: CTA CHEST REASON FOR EXAM: Female, 23 years old. Dyspnea. Elevated d-dimer. A small [facility] patient. patient. RADIATION DOSAGE (If Supplied By Facility): CTDIvol = ( 40.10 ) mGy, DLP = ( 638.40 ) mGycm TECHNIQUE: The examination was performed with the intravenous administration of 125ML IV Isovue 370. Post-processing of the angiographic images was performed, with multiplanar reformation and 3D reconstruction. Individualized dose optimization techniques were used for this CT. COMPARISON: 08/18/2018. FINDINGS: Suboptimal exam. Limited contrast enhancement of the pulmonary arteries from improper technique. Prominent contrast still seen in the right subclavian vein and yet, aorta has higher density than the pulmonary arteries. This indicates a much too broad contrast bolus, and it is impossible to exclude pulmonary emboli beyond the main right and left pulmonary arteries. Normal thoracic aorta and visualized great vessels. There is no demonstrated aortic dissection. Normal heart and pericardium. Normal mediastinum. Normal hilar regions. Normal visualized trachea and bronchi. The lungs are well expanded. Normal pulmonary parenchyma. Normal pleura. Normal chest wall structures. Normal osseous structures. Normal visualized upper abdomen. CT/CTA Chest W/WO Contrast IMPRESSION: Suboptimal exam. Improper contrast bolus injection and timing. Pulmonary emboli cannot be excluded on the right and left main pulmonary arteries. Lungs are clear. Electronically Signed: Ever Alonzo MD at 19:36 EDT , Service support ,
[2019-03-03] MEDS: Enoxaparin 100 MG/ML Syringe SC (23:31)
--- NOTE | 2019-03-03 23:36 | ED.RN ---
AFTER ADMINISTRATION OF LOVENOX PT C/O LIGHTHEADED AND PT HOB WAS LOWERED AND COOL COMPRESS TO FOREHEAD. PT C/O BURNING AT S.C. SITE, THIS NURSE EXPLAINED THAT IS A SIDE EFFECT OF THE MEDICATION. PT RESTING QUIETLY AT THIS TIME.
--- NOTE | 2019-03-03 23:40 | ED.RN ---
PT REPORTED THE BURNING STOPPED, I'M OKAY NOW
--- NOTE | 2019-03-04 12:35 | CT_ITS ---
STUDY: CTA CHEST REASON FOR EXAM: Female, 23 years old. Shortness of breath and chest pain. The patient is 7 weeks . RADIATION DOSAGE (If Supplied By Facility): CTDIvol = ( 15.82 ) mGy, DLP = ( 498.57 ) mGycm TECHNIQUE: The examination was performed with the intravenous administration of 100ml IV Isovue 370. Post-processing of the angiographic images was performed, with multiplanar reformation and 3D reconstruction. Individualized dose optimization techniques were used for this CT. COMPARISON: Comparison is made with prior examination dated March 03, 2019 and August 18, 2018. FINDINGS: There are isolated areas of nonocclusive filling defects in the subsegmental branches of the left upper lobe pulmonary artery as well as in the right lower lobe pulmonary artery. This is suggestive of pulmonary embolism. Normal thoracic aorta and visualized great vessels. There is no demonstrated aortic dissection. Normal heart and pericardium. Normal mediastinum. Normal hilar regions. Normal visualized trachea and bronchi. The lungs are well expanded. Normal pulmonary parenchyma. Normal pleura. Normal chest wall structures. Normal osseous structures. Normal visualized upper abdomen. CT/CTA Chest W/WO Contrast IMPRESSION: Nonocclusive pulmonary emboli seen in subsegmental branches of the left upper lobe and right lower lobe pulmonary arteries. Electronically Signed: Reji Burr, at 13:40 EDT , Service support ,
== END 2019-03-03 23:48 | disposition home or self-care (01) ==
PROVIDERS: Emergency Provider Emergency Medicine; Family Provider Internal Medicine; PCP Internal Medicine
DX: O26.891 Other specified pregnancy related conditions, first trimester (principal); R06.09 Other forms of dyspnea; I44.2 Atrioventricular block, complete; K21.9 Gastro-esophageal reflux disease without esophagitis; F41.9 Anxiety disorder, unspecified; O99.341 Other mental disorders complicating pregnancy, first trimester; Z95.0 Presence of cardiac pacemaker; Z3A.01 Less than 8 weeks gestation of pregnancy; Z79.899 Other long term (current) drug therapy
CPT/HCPCS: 71046; 71275; 80048; 85025; 85379; 93005; 94640; 94760; 96372; 99283; Q9967; A4216

== ENCOUNTER 2019-03-04 14:01 | Observation (INO) | payer OTHER, SELFPAY ==
[2019-03-03 16:04] VITALS: BMI 43.7
[2019-03-04 14:02] VITALS: BP 123/72; PULSE 77; RESP 16; TEMP 36.2; O2SAT 95; BMI 43.6
--- NOTE | 2019-03-04 15:31 | NURSING ---
HOSPITALIST FOR DR DUMONT
--- NOTE | 2019-03-04 16:11 | ED.VISSUMM ---
- ER Visit Summary Date of Service: 03/04/19 Chief Complaint: Shortness of breath History of Present Illness: The patient is a 23 F who presents with shortness of breath that began yesterday. Patient states that her told her she looked like she was having some shortness of breath with exertion a few days ago. Patient noticed it herself yesterday. Patient states her breathing is worse with any exertion. Patient states her breathing improved with rest. Patient admits to some tightness over the upper chest. Patient was seen here yesterday and had a CT scan done at that time which was nondiagnostic. Patient had a repeat outpatient CTA of the chest today which showed a nonocclusive PE of the left upper lobe and right lower lobe. Patient is 7 weeks . Physical Examination: Vital signs are stable. Patient is afebrile. Patient is in no acute distress. Oral mucosa is pink and moist. Neck is supple. Trachea is midline. There is no JVD noted. Heart was regular rate and rhythm. Lungs are clear and equal bilateral. Abdomen is soft. Bowel sounds are normal. There is no tenderness. There is no guarding noted. Skin is warm dry. Cranial nerves II through XII are intact. There are no focal motor or sensory deficits noted. Extremities are intact. There is no calf tenderness or edema. Test Results: PT with INR and PTT were obtained. Emergency Department Course and Treatment: Patient was started on heparin IV drip. Case was discussed with Dr. Su and Dr. Leroy. Patient will be admitted to the medical service. Patient and family understood and were agreeable with the plan. All questions were answered. Disposition: Admit to hospital Impression: 1. Pulmonary embolism This note was generated with [employer] dictation software. It may contain incorrect words, spelling, and punctuation that were not noted in review of the chart prior to signing ED Disposition - Plan for ED Patient: Disposition: Acute Care Hospital [facility] Diagnosis: Pulmonary embolism Referrals: Alie Mejía MD [Primary Care Provider] -
--- NOTE | 2019-03-04 16:11 | NURSING ---
102 PULMONARY EMBOLISM ANDREW
[2019-03-04] MEDS: HEPARIN/D5w 25,000 UNITS 25,000 UNITS/250 ML IV.SOLN. 15 UNITS IV (16:19)
[2019-03-04] MEDS: Heparin Injection (Vial) 5,000 UNIT/ML VIAL 8000 UNIT IV (16:21)
[2019-03-04 16:23] LABS: Prothrombin Time (Protime)PT. 13.3 SECONDS (11.7-14.9)
[2019-03-04 16:24] LABS: Partial Thromboplast Time 33.2 Seconds (24.1-36.2)
[2019-03-04 17:26] VITALS: BP 116/67; PULSE 71; PULSE 73; RESP 16; TEMP 37; O2SAT 98; BMI 43.2
--- NOTE | 2019-03-04 17:40 | US_ITS ---
STUDY: FIRST TRIMESTER OBSTETRICAL ULTRASOUND REASON FOR EXAM: Female, 23 years old. Viability. LMP: January 09, 2019. TECHNIQUE: Transvaginal TECHNICAL QUALITY: Adequate. PRIOR ULTRASOUND: None. FINDINGS: There is visualization of a single gestational sac in a normal intrauterine position. The mean sac diameter (MSD) measures 2.93 cm, indicating an estimated gestational age (EGA) of 8 weeks, 2 days. The gestational sac shape is within normal limits. There is a visualized yolk sac. The yolk sac measures 0.3 cm. The placenta is non-visualized. There is visualization of a live embryo. The crown-rump length (CRL) measures 1.31 cm, indicating an estimated gestational age (EGA) of 7 weeks, 4 days. There is demonstrated cardiac activity with a heart rate of 160 bpm. The estimated gestation age (EGA) by LMP is 7 weeks, 5 days. The estimated date of delivery (SANDRO) by LMP is October 16, 2019. The estimated gestation age (EGA) by US is 8 weeks, 0 days. The estimated date of delivery (SANDRO) by US is October 14, 2019. The uterus measures 9.6 x 8.8 x 5.1 cm. There is no demonstrated uterine fibroid. The cervix is closed. The right ovary measures 3.6 x 2.5 x 1.9 cm. There is a 1.5 cm corpus luteum cyst There is no visualized right adnexal mass or complex lesion. The left ovary measures 3.0 x 2.3 x 1.3 cm. There are multiple follicles of the left ovary without a dominant cyst. There is no visualized left adnexal mass or complex lesion. There is no fluid in the cul de sac. Minimal debris is seen within the urinary bladder. US/Init OB < 14Wks US IMPRESSION: 1. Live single intrauterine at 8 weeks, 0 days. SANDRO is October 14, 2019. 2. heart rate of 160 bpm. 3. Right ovarian corpus luteum cyst. Electronically Signed: Esvin Mora DO at 19:07 EDT Tel [phone], Service support ,
--- NOTE | 2019-03-04 18:44 | PCM.HP.STD ---
Problem List (1) Bilateral pulmonary embolism Status: Acute History of Present Illness Date of Admission: 03/04/19 Chief Complaint: Chest discomfort and shortness of breath The patient is a 23 year old F who is 7 weeks . Presented to the emergency department because of a few days history of chest pain and shortness of breath with exertional dyspnea. Had a CT pulmonary angiogram done about 2 days ago which was inconclusive and then had another one done today which clearly showed bilateral pulmonary emboli involving the left upper lobe segmental arterial bed and the right lower lobe segmental arterial bed. She denies any fever or palpitations. Denies any lightheadedness, dizziness or syncopal episodes. Patient has a prior history of DVT or PEs. Has no prior episodes of any arterial vascular events. Denies any history of miscarriages, late demise or any connective tissue diseases or disorders. No family history of thrombophilic disorders. Patient is not on any oral contraceptive pills. [] Past Medical History Medical History: Medical History (Last Reviewed 10/08/18 @ 16:13 by Elliott Naidu MD) Acid reflux (Acute) K21.9 Constipation (Acute) K59.00 Nausea (Acute) R11.0 Shortness of breath (Acute) R06.02 Anxiety (Acute) F41.9 Fatigue (Acute) R53.83 Allergies No Known Allergies Allergy (Verified 03/04/19 14:01) Home Medications: Ambulatory Orders Medication Instructions Recorded Buspirone HCl 10 mg PO QHS 08/18/18 Sertraline HCl [Zoloft] 100 mg PO QHS 08/18/18 ondansetron 4 mg disintegrating 4 mg PO Q8H PRN PRN #60 tab 02/23/19 tablet Hydroxyzine Pamoate 25 mg PO TID PRN PRN 03/04/19 Sertraline HCl [Zoloft] 50 mg PO QHS 03/04/19 Surgical History: Surgical History (Last Reviewed 10/08/18 @ 16:13 by Elliott Naidu MD) Hx of cardiac pacemaker (Acute) Z95.0 03/12/13 Hx of wisdom tooth extraction (Acute) K08.409 Lives: With Family Smoking Status: Never smoker Review of Systems Constitutional: Denies: Anorexia, Chills, Fever, Night Sweats, Malaise, Weakness, Fatigue Eyes: Denies: Pain HEENT: Denies: Difficulty Hearing Cardiovascular: Reports: Chest Pain. Denies: Edema, Orthopnea, Syncope Respiratory: Reports: Pleuritic Pain, Shortness of Breath, Shortness of breath upon exertion. Denies: Cough, Hemoptysis Gastrointestinal: Denies: Abdominal Pain, Vomiting Genitourinary: Denies: Dysuria Comment: Other systems reviewed and essentially negative. VTE Information - Inpt Only VTE Present on Admission: Yes VTE Mechan Device Prophylaxis: None VTE Pharm Prophylaxis ordered?: No Reason prophylaxis not ordered:: Treatment Not Indicated Patient Problems: Active and Suspected Problems (Last Reviewed 10/08/18 @ 16:13 by Elliott Naidu MD) Pulmonary embolism (Acute) Bilateral pulmonary embolism (Acute) - Physical Exam General: Alert, Oriented x3, Cooperative, No apparent distress HEENT: Atraumatic, PERRLA Oral: Moist Mucosa, No Gingival or Mucosal Lesions/ Ulcerations Neck: Supple, No JVD Lungs: Clear to auscultation, Normal air movement, No rhonchi, No wheeze, No rales Cardiovascular: Regular rate, Regular Rhythm, Normal S1, Normal S2, No murmurs, No Ectopic Activity Abdomen: Obese Extremities: No clubbing, No cyanosis Skin: No rashes, No breakdown Musculoskeletal: No Tenderness to Palpation of Joints or Extremities Neurological: Cranial nerves II-XII grossly intact, Neuro grossly intact, Motor Exam 5/5 strength throughout Psych/Mental Status: Normal Affect, Appropriate Vital Signs Temp Pulse Resp BP Pulse Ox 98.6 F 73 16 116/67 98 03/04/19 17:26 03/04/19 17:26 03/04/19 17:26 03/04/19 17:26 03/04/19 17:26 Oxygen Delivery Method Room Air Weight: 103.8 kg Body Mass Index (BMI) 43.2 Laboratory Tests Past 24 Hrs 03/04/19 15:58 PT 13.3 INR 1.0 APTT 33.2 Assessment/Plan All Active Problems (Last Reviewed 10/08/18 @ 16:13 by Elliott Naidu MD) Gallbladder sludge (Acute) Right upper quadrant abdominal pain (Acute) POTS (postural orthostatic tachycardia syndrome) (Acute) Pulmonary embolism (Acute) Bilateral pulmonary embolism (Acute) Hx of cardiac pacemaker (Acute) Hx of wisdom tooth extraction (Acute) Acid reflux (Acute) Constipation (Acute) Nausea (Acute) Shortness of breath (Acute) Anxiety (Acute) Fatigue (Acute) #1. Acute bilateral pulmonary embolism in a 7-week-old young lady. Patient started on heparin by weight. Tomorrow we will start patient on low molecular weight heparin either twice a day or daily. I expect patient should be stable enough to be discharged tomorrow. Would likely need chronic anticoagulation with Lovenox for the rest of her . Recommended and advised that hormonal contraception be avoided in the future. Obstetrics consulted. 2. Acute obesity. Lifestyle modifications following delivery. 3. History of POTS. Stable at this time. 4. History of complete heart block. Status post pacemaker. Fairly well. Code Visit Inpatient E&M: 60358 Init Hosp L3
[2019-03-04 19:00] VITALS: PULSE 79
[2019-03-04 21:30] VITALS: BP 107/68; PULSE 69; RESP 16; TEMP 36.8; O2SAT 96
[2019-03-04] MEDS: busPIRone 5 MG Tablet 10 MG PO (21:34)
[2019-03-04] MEDS: Sertraline 100 MG Tablet PO (21:34)
[2019-03-04] MEDS: Sertraline 50 MG Tablet PO (21:34)
[2019-03-04] MEDS: hydrOXYzine PAM 25 MG Capsule PO (22:30)
[2019-03-05] VITALS (8 sets, daily range): BP systolic 108–115; BP diastolic 62–69; PULSE 63–83; RESP 16–18; TEMP 36.6–36.8; O2SAT 95–97
--- NOTE | 2019-03-05 00:12 | NURSING ---
Pt doesnt like needles refused blood glucose check at this time
--- NOTE | 2019-03-05 00:57 | CCHN_ITS ---
Hospitalist Note The patient is 23-year-old, 7-week admitted with bilateral PE, subsegmental branches of left upper lobe pulmonary artery and right lower lobe pulmonary artery. Currently patient is on IV heparin drip but unable to get PTT because of hard stick as tried by multiple transit worker and nurses. Heparin drip is being stopped. Start on Lovenox 1 mg/kg body weight every 12 hourly after 6-hour, that will be 7 AM. This was discussed with outside sales account executive Dr. Mayorga and he advised to continue Lovenox throughout the until delivery. Patient can follow-up with hematology clinic after discharge.
[2019-03-05] MEDS: Enoxaparin 100 MG/ML Syringe SC (06:59)
[2019-03-05] MEDS: 0.9% NaCl Peripheral Flush Adult/Peds IV (07:03)
[2019-03-05 07:36] LABS: Bedside Glucose 76 mg/dL (70-110)
--- NOTE | 2019-03-05 11:46 | DCINST_ITS ---
- Discharge Diagnoses Current Active Problems: Current Active and Chronic Problems (Last Reviewed 10/08/18 @ 16:13 by Elliott Naidu MD) Pulmonary embolism (Acute) Bilateral pulmonary embolism (Acute) You will use the following diet at home:: No restrictions Discharge Activity: Return to Normal Activity Call your doctor if you observe: Shortness of breath, Dizziness, Fainting spells, Chest pain Allergies/Adverse Reactions: Allergies No Known Allergies Allergy (Verified 03/04/19 14:01) Medications to take at Discharge Buspirone HCl 10 mg PO QHS 08/18/18 Sertraline HCl [Zoloft] 100 mg PO QHS 08/18/18 ondansetron 4 mg disintegrating tablet 4 mg PO Q8H PRN PRN #60 tab 02/23/19 Hydroxyzine Pamoate 25 mg PO TID PRN PRN 03/04/19 Sertraline HCl [Zoloft] 50 mg PO QHS 03/04/19 Enoxaparin [Lovenox] 100 mg SUBCUT Q12 #60 syringe 03/05/19 The following prescriptions were given: Enoxaparin [Lovenox] 100 mg SUBCUT Q12 #60 syringe Transmission Status: Pending to [id number] Primary Care Physician: Alie Mejía MD [Primary Care Provider] - Please follow up with your Primary Care Physician in: 3-5 Days Test Results: Test results from this visit will be discussed in further detail at your follow- up appointment, if applicable. Please Follow Up With: Leora Mayorga MD When: 1 Week Please Follow Up With: Anabel Su MD When: As scheduled Proposed Discharge Date: 03/05/19
--- NOTE | 2019-03-05 11:50 | PCM.DC.SUM ---
<Joycelyn Hills - Last Filed: 03/05/19 12:16> Discharge Date and Diagnosis Date of Admission: 03/04/19 Date of Discharge: 03/05/19 - Primary Discharge Diagnosis Active and Suspected Problems (Last Reviewed 10/08/18 @ 16:13 by Elliott Naidu MD) 1. Acute bilateral pulmonary embolism 2. First trimester 3. History of POTS 4. History of complete heart block status post pacemaker 5. Anxiety/depression 6. Obesity Hospital Course and Treatment Imaging Results: Diagnostic Data Obstetrics Ultrasound 03/04/19 17:40 IMPRESSION: 1. Live single intrauterine at 8 weeks, 0 days. SANDRO is October 14, 2019. 2. heart rate of 160 bpm. 3. Right ovarian corpus luteum cyst. Electronically Signed: Esvin Mora DO at 19:07 EDT Tel [phone], Service support , Dr. Su- PLATEN DRIER OPERATOR Operations: None Procedures: None Summary of Care Provided: The patient is a 23 year old F admitted 03/04/19 due to shortness of breath. 1. Acute bilateral pulmonary embolism-chest CTA shows nonocclusive pulmonary emboli seen in the subsegmental branches of the left upper lobe and right lower lobe pulmonary arteries. Patient hemodynamically stable. No hypoxia noted. Patient was initiated on Lovenox 1 mg/kg every 12 hours which she will continue taking for the remainder of her . Hospitalist discussed with hematology, Dr. Mayorga who agrees with treatment plan. Follow with hematology at discharge in 1 week. Follow-up with primary care provider in 3 to 5 days. Follow-up with OB as scheduled. 2. First trimester - Dr. Su consulted during admission. Continue outpatient follow up as scheduled. 3. History of POTS-stable. 4. History of complete heart block status post pacemaker-stable. 5. Anxiety/depression-continue home buspirone, sertraline, hydroxyzine regimen. 6. Obesity-encouraged diet and lifestyle modifications following . Patient seen and examined prior to discharge. Physical assessment as noted below. Patient is stable for discharge with follow up recommendations as noted above. This patient was seen by SILVIA Esposito under the supervision of Dr. Lott. - Physical Exam General: Alert, Oriented x3, Cooperative HEENT: Atraumatic, PERRLA, EOMI, Normocephalic Neck: Supple, No JVD, Negative Carotid Bruits Lungs: Clear to auscultation, Normal air movement Cardiovascular: Regular rate, Regular Rhythm, Normal S1, Normal S2, No murmurs Abdomen: Bowel Sounds Present, Soft, Non Tender, Non-Distended, Obese Extremities: No clubbing, No cyanosis, No edema, Capillary Refill Less than 3 Seconds Skin: No rashes, No breakdown Musculoskeletal: No Tenderness to Palpation of Joints or Extremities Neurological: Cranial nerves II-XII grossly intact, Neuro grossly intact Psych/Mental Status: Normal Affect, Appropriate Vital Signs Temp Pulse Resp BP Pulse Ox 98.3 F 73 16 108/62 96 03/05/19 09:13 03/05/19 10:00 03/05/19 09:13 03/05/19 09:13 03/05/19 09:13 Oxygen Delivery Method Room Air Weight: 228 lb 13.437 oz Body Mass Index (BMI) 43.2 Intake and Output for Last 24 Hours 03/03/19 03/04/19 03/05/19 23:59 23:59 23:59 Intake Total 314 / 314 16.1 / 16.1 Balance 314 / 314 16.1 / 16.1 Laboratory Tests Past 24 Hrs 03/04/19 15:58 PT 13.3 INR 1.0 APTT 33.2 POC Glucose 03/05/19 07:29 POC Glucose 76 Discharge Diet: No Restrictions Discharge Activity: Return to Normal Activity Call your doctor if you observe: Shortness of breath, Dizziness, Fainting spells, Chest pain Home Medications: Medications to take at Discharge Buspirone HCl 10 mg PO QHS 08/18/18 Sertraline HCl [Zoloft] 100 mg PO QHS 08/18/18 ondansetron 4 mg disintegrating tablet 4 mg PO Q8H PRN PRN #60 tab 02/23/19 Hydroxyzine Pamoate 25 mg PO TID PRN PRN 03/04/19 Sertraline HCl [Zoloft] 50 mg PO QHS 03/04/19 Enoxaparin [Lovenox] 100 mg SUBCUT Q12 #60 syringe 03/05/19 Following Prescrptions Were Given to Patient: Enoxaparin [Lovenox] 100 mg SUBCUT Q12 #60 syringe Transmission Status: Received by [id number] Primary Care Physician: Alie Mejía MD [Primary Care Provider] - Please follow up with your Primary Care Physician in: 3-5 Days Please Follow Up With: Leora Mayorga MD When: 1 Week Please Follow Up With: Anabel Su MD When: As scheduled Disposition: Home Minutes spent on discharge:: 35 Patient Condition:: Stable Medical Necessity - Tobacco Use Smoking Status: Never smoker Meaningful Use Info Meaningful Use Diagnoses (Choose all that apply): VTE - VTE Anticoag overlap given w/in hospital stay or rx'd at dc?: Yes Pt receive overlap for 5 days?: Yes <Ankit Lott - Last Filed: 03/05/19 14:57> Hospital Course and Treatment Summary of Care Provided: The patient is a 23 year old F who is in her first trimester of presented with shortness of breath. CTA obtained demonstrated nonocclusive bilateral pulmonary embolism admitted to monitored bed for subsequent management. Patient was treated with Lovenox prescription was written for discharge. Plan is for patient to follow-up with hematology as well as a PLATEN DRIER OPERATOR as outpatient Was seen and examined and her questions answered on the day of her discharge. Discharge course as documented above by Joycelyn Hills NP?C - Physical Exam Vital Signs Temp Pulse Resp BP Pulse Ox 98.1 F 83 18 115/69 95 03/05/19 13:46 03/05/19 13:46 03/05/19 13:46 03/05/19 13:46 03/05/19 13:46 Oxygen Delivery Method Room Air Weight: 103.8 kg Body Mass Index (BMI) 43.2 Intake and Output for Last 24 Hours 03/03/19 03/04/19 03/05/19 23:59 23:59 23:59 Intake Total 314 / 314 16.1 / 16.1 Balance 314 / 314 16.1 / 16.1 Laboratory Tests Past 24 Hrs 03/04/19 15:58 PT 13.3 INR 1.0 APTT 33.2 POC Glucose 03/05/19 07:29 POC Glucose 76 Code Visit OBSV E&M: 12587 Observation care discharge
--- NOTE | 2019-03-05 13:27 | CASEMGMT ---
FOX CHERRY assessment: Face to Face with patient for initial transition planning/care coordination assessment. FOX CHERRY introduced self and role at [facility], pt voices understanding and consents to assessment at this time. Pt is lying in bed in no distress at this time. Pt is A/Ox4 at this time and answers all questions appropriately at this time. Care providers, pharmacy, and demographics verified at this time. PCP: Kym Specialists: Aga, boiler/chiller technician Preferred Pharmacy: [facility] [place] Insurance: [facility] Prescription Benefit: [facility] Living Will/HPOA: Pt states does not have LW/HPOA and declines info at this time. LNOK: Reggie Navarro, ; Concha Sanchezorrow, mother Living Arrangements: Pt lives with , daughter and mother and states no concerns at home at this time. Pt states is independent with ADL's. Transportation: Pt states drives self and states no tranportation concerns at this time. DME/HHC: Pt states no current DME or need for any at this time. Pt to be sent home on Lovenox at discharge and med e-scribed to [facility] previously. Call to [facility] pharmacy and per pharmacist, Lovenox is covered with a $0 co-pay at this time. Pt is updated at this time, voices understanding. Pt states no concerns with going home at time of discharge. 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 Pt states does not smoke or drink ETOH. Pt states no further concerns/needs at this time. CM to follow for any further discharge planning/needs. Advised pt to ask for CM if any further questions/concerns/needs arise, pt voices understanding. Pt Goal: Home Plan: Home [place]
== END 2019-03-05 13:54 | disposition home or self-care (01) ==
LOC: ED 16:15 → PCU 03-05 06:53
PROVIDERS: Admitting Provider Internal Medicine; Emergency Provider Emergency Medicine; Family Provider Internal Medicine; PCP Internal Medicine; Visit Provider Internal Medicine
DX: O88.211 Thromboembolism in pregnancy, first trimester (principal); Z3A.01 Less than 8 weeks gestation of pregnancy; K21.9 Gastro-esophageal reflux disease without esophagitis; F41.9 Anxiety disorder, unspecified; O99.341 Other mental disorders complicating pregnancy, first trimester; E66.9 Obesity, unspecified; O99.211 Obesity complicating pregnancy, first trimester; O99.411 Diseases of the circulatory system complicating pregnancy, first trimester; I44.2 Atrioventricular block, complete; Z86.718 Personal history of other venous thrombosis and embolism; Z79.899 Other long term (current) drug therapy; Z95.0 Presence of cardiac pacemaker
CPT/HCPCS: 76801; 82962; 85610; 85730; 96365; 96366; 96372; 96376; 99218; 99283; A4216; G0378

== ENCOUNTER 2019-03-06 09:54 | Emergency (ER) | payer OTHER, SELFPAY ==
[2019-03-04 17:26] VITALS: BMI 43.2
[2019-03-06 09:55] VITALS: BP 127/70; PULSE 98; RESP 17; TEMP 36.4; O2SAT 96; BMI 43.2
--- NOTE | 2019-03-06 10:11 | EKG12_ITS ---
Test Reason : SOB Blood Pressure : / mmHG Vent. Rate : 075 BPM Atrial Rate : 075 BPM P-R Int : 140 ms QRS Dur : 166 ms QT Int : 424 ms P-R-T Axes : 056 -62 078 degrees QTc Int : 473 ms Atrial-sensed ventricular-paced rhythm Abnormal ECG Confirmed by NISH BOWENS, PIPE ([id number]), desk editor ANTHONY ESPINOZA ([id number]) on 03/09/2019 11:39:05 AM Referred By: ROLF Confirmed By:PIPE MOCK MD
[2019-03-06 10:12] VITALS: O2SAT 96
[2019-03-06 10:15] VITALS: O2SAT 98
[2019-03-06 10:41] LABS: Absolute Lymphocyte Count 2.12 X10^3/uL (0.83-4.51); Absolute Neutrophil Count 5.6 X10^3/uL (2.0-7.7); Basophil# 0.02 X10^3/uL; Basophil% 0.2 % (0-1); Eosinophil# 0.07 X10^3/uL; Eosinophils% 0.8 % (0-5); Hematocrit 41.2 % (37-47); Hemoglobin 13.8 g/dL (12.0-15.0); Lymphocyte # 2.12 X10^3/ul (4.0); Lymphocyte % 25.7 % (19-41); Mean Corp Hgb Conc 33.5 g/dL (32-36); Mean Corpuscular Hgb 27.8 pg (27.0-32.0); Mean Corpuscular Volume 83.1 fL (81-99); Mean Platelet Vol. 9.2 fl (6.2-12.0); Monocyte# 0.38 X10^3/uL; Monocyte% 4.6 % (0-10); NRBC Flagged by Analyzer 0 % (0-5); Neutrophil # 5.64 X10^3/uL (2.7-7.7); Neutrophil % 68.3 % (47-70); Platelet Count 318 K/mm3 (150-450); RBC Distribution Width CV 12.9 % (11.6-14.6); RBC Distribution Width SD 39.1 fl (35.1-43.9); Red Blood Count 4.96 M/mm3 (4.2-5.4); White Blood Count 8.3 K/mm3 (4.4-11.0)
--- NOTE | 2019-03-06 11:00 | ED.DCSUM_ITS ---
- ER Visit Summary Date of Service: 03/06/19 Chief Complaint: Shortness of breath History of present illness: [23-year-old female presents to the emergency department complaint shortness of breath especially with exertion over the last 3 days. Patient was seen in the emergency department 2 days ago diagnosed with pulmonary embolism was admitted for day and started on initially heparin and then Lovenox. Patient was just discharged home yesterday. Patient noted somewhat increased shortness of breath with activity today and called her DIETETIC TECHNICIAN REGISTERED who referred her to the emergency department. Patient denies any chest pain. Patient denies any blood in her stool or black tarry stool. She denies any fever or cough. She denies hemoptysis.] Patient has history of anxiety, pots, and history of third-degree heart block with pacemaker. Physical Examination: [HEENT-PERRLA, EOMI. Cranial nerves II through XII grossly intact. TMs clear. Mucous membranes moist. No adenopathy. Cardiovascular-regular rate and rhythm without murmur or ectopy Lungs-clear to auscultation, chest wall stable without crepitus or subcu emphysema Abdomen-normoactive bowel sounds, soft, nontender, no rebound or rigidity, no peritoneal signs. Extremities-intact ?4, normal range of motion, normal pulses, atraumatic] Test Results: [CBC with differential is normal. Patient ambulated in the department with pulse oximeter and her O2 sat was 96 to 97% on room air.] Emergency Department Course and Treatment: [Case was discussed with patient's DIETETIC TECHNICIAN REGISTERED who asked that patient follow-up with her primary care physician within the next 3 to 5 days.] Treatment Plan: [At this point I feel patient is safe for discharge she is hemodynamically stable. Patient to continue on her Lovenox.] Disposition: [Discharged home stable condition] Impression: [Dyspnea Pulmonary embolism] This note was generated with [employer] dictation software. It may contain incorrect words, spelling, and punctuation that were not noted in review of the chart prior to signing ED Disposition - Plan for ED Patient: Referrals: Alie Mejía MD [Primary Care Provider] -
--- NOTE | 2019-03-06 11:03 | DCINST.ED_ITS ---
ED Disposition - Plan for ED Patient: Instructions: Pulmonary Embolism Referrals: lAie Mejía MD [Primary Care Provider] - 3-5 Days
--- NOTE | 2019-03-06 11:03 | ED.DEP ---
ED Disposition - Plan for ED Patient: Instructions: Pulmonary Embolism Referrals: Alie Mejía MD [Primary Care Provider] - 3-5 Days
[2019-03-06 11:17] VITALS: BP 121/68; PULSE 78; RESP 15; O2SAT 98
== END 2019-03-06 11:18 | disposition home or self-care (01) ==
LOC: ED 10:52
PROVIDERS: Emergency Provider Emergency Medicine; Family Provider Internal Medicine; PCP Internal Medicine
DX: I26.99 Other pulmonary embolism without acute cor pulmonale (principal); I44.2 Atrioventricular block, complete; F41.9 Anxiety disorder, unspecified; Z79.01 Long term (current) use of anticoagulants; Z79.899 Other long term (current) drug therapy; Z95.0 Presence of cardiac pacemaker
CPT/HCPCS: 85025; 93005; 99283; A4216

== ENCOUNTER → 2019-03-09 13:03 | Outpatient (CLI) | payer OTHER, SELFPAY ==
[2019-03-09 12:19] VITALS: BMI 43.2
[2019-03-09 15:45] LABS: Chlamydia Trachomatis by PCR Negative (Negative); Neisserai gonorrhoeae by PCR Negative (Negative); Probe Check PASS; Sample Adequacy Control PASS; Specimen Processing Control PASS
[2019-03-11 13:02] LABS: HPV Reflexed? NOT INDICATED
== END ==
LOC: LABSPEC 13:04
PROVIDERS: Family Provider Internal Medicine; PCP Internal Medicine; Referring Provider Nurse Practitioner Women's Health; Visit Provider Nurse Practitioner Women's Health
DX: Z34.90 Encounter for supervision of normal pregnancy, unspecified, unspecified trimester (principal); Z12.4 Encounter for screening for malignant neoplasm of cervix
CPT/HCPCS: 87491; 87591; 87624; 88175; G0145

== ENCOUNTER → 2019-03-17 08:25 | Outpatient (CLI) | payer OTHER, SELFPAY ==
[2019-03-10 09:05] VITALS: BMI 43.2
[2019-03-16 15:13] VITALS: BMI 41.3
[2019-03-17 08:30] VITALS: PULSE 102; PULSE 103; PULSE 104; PULSE 105; PULSE 109; PULSE 65; PULSE 87; PULSE 98; O2SAT 95; O2SAT 96; O2SAT 97; O2SAT 98
--- NOTE | 2019-03-18 08:20 | PCM.PSN.6M ---
PSN 6 Minute Walk Test - 6 Minute Walk Test 6 Minute Walk Test: 6 Minute Walk Test PSN:6-Minute Walk Test Start: 03/17/19 08:52 Freq: Status: Active Protocol: RESP.6MINW Document 03/17/19 08:30 EW (Rec: 03/17/19 08:55 EW [id number]) 6 Minute Walk Test Date Performed 03/17/19 Time Performed 08:30 Height 61 ft Weight: 229 lb Weight in Pounds 229.[address]: Bruno Gibson Assistive device used: None Pre-test Oxygen Delivery Method Room Air Pulse Ox (%) 98 Pulse Rate (60-100 beats/min) 65 Dyspnea Abi Scale (0-10) 0 Exertion Abi Scale (6-20) 6 1st minute Oxygen Delivery Method Room Air Pulse Ox (%) 97 Pulse Rate (60-100 beats/min) 98 2nd minute Oxygen Delivery Method Room Air Pulse Ox (%) 95 Pulse Rate (60-100 beats/min) 102 H 3rd minute Oxygen Delivery Method Room Air Pulse Ox (%) 95 Pulse Rate (60-100 beats/min) 103 H 4th minute Oxygen Delivery Method Room Air Pulse Ox (%) 95 Pulse Rate (60-100 beats/min) 104 H 5th minute Oxygen Delivery Method Room Air Pulse Ox (%) 96 Pulse Rate (60-100 beats/min) 109 H 6th minute Oxygen Delivery Method Room Air Pulse Ox (%) 96 Pulse Rate (60-100 beats/min) 105 H Post-test Oxygen Delivery Method Room Air Pulse Ox (%) 97 Pulse Rate (60-100 beats/min) 87 Dyspnea Abi Scale (0-10) 2 Exertion Abi Scale (6-20) 8 Reported Symptoms Increased Work of Breathing Full Laps Walked 16 Partial Lap, Number of Tiles Walked 0 Total Distance Walked (ft) 944 - Interpretation Interpretation: The patient ambulated 944 feet over the course of 6 minutes beginning on room air without assistive devices or breaks. Pretesting oxygen saturation was noted to be 98% on room air. With ambulation, the makayla oxygen saturation was 95%. There was no significant exertional oxygen desaturation. - Recommendations Recommendations: There is no indication for the use of supplemental oxygen at this time.
== END ==
LOC: PSN 08:25
PROVIDERS: Family Provider Internal Medicine; PCP Internal Medicine; Referring Provider Internal Medicine Critical Care Medicine; Visit Provider Internal Medicine Critical Care Medicine
DX: R06.09 Other forms of dyspnea (principal)
CPT/HCPCS: 94618

== ENCOUNTER → 2019-03-20 13:56 | Outpatient (CLI) | payer OTHER, SELFPAY ==
[2019-03-10 09:05] VITALS: BMI 43.2
[2019-03-16 15:13] VITALS: BMI 41.3
--- NOTE | 2019-03-20 13:58 | ECHOD_ITS ---
Reason For Study: Dyspnea/SOB Procedure This was a 2D Doppler, Color Flow transthoracic echocardiogram. Technically difficult study, unable to use Definity due to patients . Patient is currently 10 weeks with multiple PE's. Exam performed in department. Left Ventricle Normal size and thickness. The estimated ejection fraction is 65 %. Normal diastology for age. No regional wall motion abnormalities noted. Right Ventricle Normal size and thickness. ICD or pacer leads identified within the right ventricle. Normal systolic function. Atria Normal left atrium. Normal right atrium. Normal atrial septum. Mitral Valve The mitral valve is structurally normal. No prolapse or stenosis seen. Tricuspid Valve Normal tricuspid valve. Trivial tricuspid valve insufficiency. Right ventricular systolic pressure estimated to be 14 mmHg. Aortic Valve Normal aortic valve. Trisinus/trileaflet aortic valve. Pulmonic Valve Normal pulmonic valve. Great Vessels Normal aortic root. Normal arch. Normal inferior vena cava. Inferior vena cava collapse with sniff. Pericardium/Pleural No pericardial effusion. MMode/2D Measurements & Calculations LVIDd: 4.4 cm IVSd: 0.78 cm LA dimension: 3.8 cm LVIDs: 3.0 cm LVPWd: 0.76 cm FS: 31.5 % LAV(MOD-bp): 35.2 ml LA A4 area: 14.8 cm2 RA A4 area: 11.1 cm2 LAV(MOD-bp) Indexed: 17.6 ml/m2 LAV(MOD-sp2): 32.1 ml LAV(MOD-sp4): 37.7 ml Time Measurements MV dec time: 0.26 sec Doppler Measurements & Calculations MV E max jonny: 100.7 cm/sec Lat Peak E' Jonny: 17.0 cm/sec Med Peak E' Jonny: 10.3 cm/sec MV A max jonny: 58.9 cm/sec E/E' lat: 5.9 E/E' med: 9.7 MV E/A: 1.7 MV V2 max: 109.8 cm/sec MV P1/2t max jonny: 109.8 cm/sec Ao V2 max: 162.8 cm/sec MV max P.8 mmHg MV P1/2t: 94.9 msec Ao max P.6 mmHg MV V2 mean: 61.9 cm/sec MV dec slope: 339.0 cm/sec2 Ao V2 mean: 119.0 cm/sec MV mean P.8 mmHg MVA(P1/2t): 2.3 cm2 Ao mean P.2 mmHg MV V2 VTI: 33.8 cm Ao V2 VTI: 30.6 cm LV V1 max: 136.3 cm/sec PA V2 max: 131.0 cm/sec TR max jonny: 155.0 cm/sec LV V1 max P.4 mmHg TR max P.6 mmHg LV V1 mean P.3 mmHg LV V1 mean: 98.4 cm/sec LV V1 VTI: 28.4 cm Interpretation Summary The estimated ejection fraction is 65 %. Normal diastology for age. Trivial tricuspid valve insufficiency. Right ventricular systolic pressure estimated to be 14 mmHg. There is no comparison study available. Ordering Physician: Bruno Gibson Referring Physician: Alie Mejía Performed By: Brian Li RCS
== END ==
LOC: CVS 13:56
PROVIDERS: Family Provider Internal Medicine; PCP Internal Medicine; Referring Provider Internal Medicine Critical Care Medicine; Visit Provider Internal Medicine Critical Care Medicine
DX: I26.99 Other pulmonary embolism without acute cor pulmonale (principal)
CPT/HCPCS: 93306

== ENCOUNTER → 2019-03-23 14:57 | Outpatient (CLI) | payer OTHER, SELFPAY ==
[2019-03-16 15:13] VITALS: BMI 41.3
[2019-03-23 15:24] LABS: Absolute Lymphocyte Count 2.19 X10^3/uL (0.83-4.51); Absolute Neutrophil Count 3.9 X10^3/uL (2.0-7.7); Basophil# 0.02 X10^3/uL; Basophil% 0.3 % (0-1); Eosinophil# 0.08 X10^3/uL; Eosinophils% 1.2 % (0-5); Hemoglobin 12.8 g/dL (12.0-15.0); Lymphocyte # 2.19 X10^3/ul (4.0); Lymphocyte % 33.6 % (19-41); Mean Corp Hgb Conc 33.7 g/dL (32-36); Mean Corpuscular Hgb 28.3 pg (27.0-32.0); Mean Corpuscular Volume 84.1 fL (81-99); Mean Platelet Vol. 9.5 fl (6.2-12.0); Monocyte# 0.36 X10^3/uL; Monocyte% 5.5 % (0-10); NRBC Flagged by Analyzer 0 % (0-5); Neutrophil # 3.85 X10^3/uL (2.7-7.7); Neutrophil % 59.1 % (47-70); Platelet Count 292 K/mm3 (150-450); RBC Distribution Width SD 39.9 fl (35.1-43.9); Red Blood Count 4.52 M/mm3 (4.2-5.4); White Blood Count 6.5 K/mm3 (4.4-11.0)
[2019-03-24 09:38] LABS: HIV - WCH Non-Reactive (Nonreactive); Hepatitis B Surface Antigen Non-Reactive (Nonreactive); Rubella IgG 83.5 IU/mL
[2019-03-27 01:38] LABS: Rapid Plasmin Reagin (RPR) NONREACTIVE (NONREACTIVE)
== END ==
LOC: PAVLAB 14:59
PROVIDERS: Nurse Practitioner Women's Health; Family Provider Internal Medicine; PCP Internal Medicine; Referring Provider Obstetrics & Gynecology; Visit Provider Obstetrics & Gynecology
DX: Z34.81 Encounter for supervision of other normal pregnancy, first trimester (principal); Z3A.00 Weeks of gestation of pregnancy not specified
CPT/HCPCS: 36415; 85025; 86592; 86703; 86762; 86850; 86900; 86901; 87340

== ENCOUNTER → 2019-04-06 08:35 | Outpatient (CLI) | payer OTHER, SELFPAY ==
[2019-03-30 15:06] VITALS: BMI 41.3
== END ==
LOC: LAB 08:38
PROVIDERS: Nurse Practitioner Women's Health; Family Provider Internal Medicine; PCP Internal Medicine; Visit Provider Obstetrics & Gynecology
DX: Z34.91 Encounter for supervision of normal pregnancy, unspecified, first trimester (principal); Z3A.00 Weeks of gestation of pregnancy not specified
CPT/HCPCS: 36415; 87077; 87086; 87088; 87186

== ENCOUNTER 2019-05-06 09:15 | Emergency (ER) | payer OTHER, SELFPAY ==
[2019-05-01 16:04] VITALS: BMI 45.3
[2019-05-06 09:15] VITALS: BP 160/108; PULSE 112; RESP 24; TEMP 36.6; O2SAT 98; BMI 44.6
--- NOTE | 2019-05-06 09:40 | CT_ITS ---
STUDY: CTA CHEST REASON FOR EXAM: Female, 23 years old. The patient is 16 weeks . RADIATION DOSAGE (If Supplied By Facility): CTDIvol = ( 11.48 ) mGy, DLP = ( 476.43 ) mGycm TECHNIQUE: The examination was performed with the intravenous administration of IV Isovue 370 100ML. Post-processing of the angiographic images was performed, with multiplanar reformation and 3D reconstruction. Individualized dose optimization techniques were used for this CT. COMPARISON: Comparison is made with prior study dated March 04, 2019. FINDINGS: Normal enhancement of the main pulmonary artery and right and left pulmonary arteries. Normal enhancement of the bilateral peripheral pulmonary arteries. There is no demonstrated pulmonary embolism. Normal thoracic aorta and visualized great vessels. There is no demonstrated aortic dissection. Normal heart and pericardium. Normal mediastinum. Normal hilar regions. Normal visualized trachea and bronchi. The lungs are well expanded. Normal pulmonary parenchyma. Normal pleura. Normal chest wall structures. Normal osseous structures. Normal visualized upper abdomen. CT/CTA Chest W/WO Contrast IMPRESSION: Normal CTA chest examination, without a demonstrated pulmonary embolism or arterial dissection. Electronically Signed: Reji Burr, at 11:10 EDT , Service support ,
--- NOTE | 2019-05-06 09:40 | EKG12_ITS ---
Test Reason : CP Blood Pressure : / mmHG Vent. Rate : 097 BPM Atrial Rate : 097 BPM P-R Int : 136 ms QRS Dur : 156 ms QT Int : 400 ms P-R-T Axes : 051 -51 066 degrees QTc Int : 508 ms Atrial-sensed ventricular-paced rhythm Abnormal ECG Confirmed by ELSA BOWENS, SERA ([id number]), image editor MELQUIADES FIGUEROA ([id number]) on 05/12/2019 10:33:37 AM Referred By: Confirmed By:ANGLE HUNTER MD
--- NOTE | 2019-05-06 09:41 | ED.DCSUM_ITS ---
- ER Visit Summary Date of Service: 05/06/19 Chief Complaint: Shortness of breath History of Present Illness: The patient is a 23 F who presents with shortness of breath that has gradually gotten worse over the past 3 weeks. Patient states she has a history of pulmonary embolism and is currently on Lovenox. Patient is approximately 16 weeks . Patient states her breathing is gradually gotten worse over the past 3 days. Patient called her WAFER SUBSTRATE TESTER and dietary internship today who both referred her to the emergency department for further evaluation. Patient states her breathing is worse with any exertion. Patient states nothing seems to help her breathing. Patient states she was given an inhaler which has not helped. Patient admits to a cough but denies any sputum production. Patient admits to subjective chills but denies any fevers. Patient states her chest feels tight. Physical Examination: Vital signs are stable except for a mildly elevated blood pressure 160/108, a mild tachycardia of 112, and a mild tachypnea of 24.. Patient is afebrile. Patient is in no acute distress. Oral mucosa is pink and moist. Neck is supple. Trachea is midline. There is no JVD noted. Heart was regular rate and rhythm. Lungs are clear and equal bilaterally. Abdomen is so ft. Bowel sounds are normal. There is no tenderness. There is no guarding noted. Skin is warm dry. Cranial nerves II through XII are intact. There are no focal motor or sensory deficits noted. Test Results: EKG showed a paced rhythm with a rate of 97. There is a left bundle branch block pattern noted. There are no acute ST or T wave changes. CTA of the chest was repeated. There is no pulmonary embolism noted. CBC and basic metabolic profile were normal. PT with INR were normal. PTT was 31.5. Emergency Department Course and Treatment: Patient was feeling better on reevaluation. Case was discussed with Dr. Su. She was advised of the findings. She did recommended continuing the Lovenox with the patient. Patient was instructed to follow-up with Dr. Su as scheduled. Patient and family understood and were agreeable with the plan. All questions were answered. Disposition: Discharge home Impression: Dyspnea This note was generated with [employer] dictation software. It may contain incorrect words, spelling, and punctuation that were not noted in review of the chart prior to signing ED Disposition - Plan for ED Patient: Disposition: Home or Assisted Living Diagnosis: Dyspnea, Instructions: ED Dyspnea Referrals: Alie Mejía MD [Primary Care Provider] - 5-7 Days Anabel Su MD [STAFF PHYSICIAN] - Keep [facility] appointment Additional Instructions: Continue your Lovenox as previously prescribed.
[2019-05-06 09:56] LABS: Absolute Lymphocyte Count 1.76 X10^3/uL (0.83-4.51); Absolute Neutrophil Count 5.1 X10^3/uL (2.0-7.7); Basophil# 0.03 X10^3/uL; Basophil% 0.4 % (0-1); Eosinophil# 0.06 X10^3/uL; Eosinophils% 0.8 % (0-5); Hemoglobin 13.1 g/dL (12.0-15.0); Lymphocyte # 1.76 X10^3/ul (4.0); Mean Corp Hgb Conc 33.6 g/dL (32-36); Mean Corpuscular Hgb 28.4 pg (27.0-32.0); Mean Corpuscular Volume 84.4 fL (81-99); Mean Platelet Vol. 9.4 fl (6.2-12.0); Monocyte# 0.37 X10^3/uL; NRBC Flagged by Analyzer 0 % (0-5); Neutrophil # 5.07 X10^3/uL (2.7-7.7); Neutrophil % 69.3 % (47-70); Platelet Count 270 K/mm3 (150-450); RBC Distribution Width CV 13.3 % (11.6-14.6); RBC Distribution Width SD 41.1 fl (35.1-43.9); Red Blood Count 4.62 M/mm3 (4.2-5.4); White Blood Count 7.3 K/mm3 (4.4-11.0)
[2019-05-06 09:59] LABS: Prothrombin Time (Protime)PT. 13.2 SECONDS (11.7-14.9)
[2019-05-06 10:00] LABS: Partial Thromboplast Time 31.5 Seconds (24.1-36.2)
[2019-05-06 10:08] LABS: Anion Gap 5 (5-15); BUN 9 mg/dL (7-18); BUN/Creat Ratio 14.1 RATIO (10-20); Calcium,Total 9.3 mg/dL (8.5-10.1); Chloride 105 mmol/L (98-107); Creatinine, Serum 0.64 mg/dL (0.55-1.02); EST Glomerular Filtration Rate 120 mL/min (>60); Est Glom Filt Rate - Afr Amer 145 mL/min (>60); Glucose 94 mg/dL (74-106); Potassium 3.5 mmol/L (3.5-5.1); Sodium Level 136 mmol/L (136-145)
[2019-05-06 10:11] VITALS: O2SAT 98
[2019-05-06 13:02] VITALS: BP 103/58; PULSE 87; RESP 18; O2SAT 99
== END 2019-05-06 13:04 | disposition home or self-care (01) ==
PROVIDERS: Emergency Provider Emergency Medicine; Family Provider Internal Medicine; PCP Internal Medicine
DX: O26.892 Other specified pregnancy related conditions, second trimester (principal); R06.00 Dyspnea, unspecified; O99.212 Obesity complicating pregnancy, second trimester; R03.0 Elevated blood-pressure reading, without diagnosis of hypertension; R00.0 Tachycardia, unspecified; Z79.01 Long term (current) use of anticoagulants; Z79.899 Other long term (current) drug therapy; Z86.711 Personal history of pulmonary embolism; Z3A.16 16 weeks gestation of pregnancy
CPT/HCPCS: 71275; 80048; 85025; 85610; 85730; 93005; 99284; Q9967; A4216

== ENCOUNTER 2019-06-10 13:30 | Outpatient (CLI) | payer OTHER, SELFPAY ==
[2019-05-29 16:47] VITALS: BMI 44.6
[2019-06-10 13:55] VITALS: BMI 44.9
[2019-06-10 15:15] LABS: Color, Urine Yellow (Yellow); Glucose, Dipstick Normal (Normal); Ketone-Dipstick Negative (Negative); Leukocyte Esterase-Dipstick 25 /ul (Negative); Nitrite-Dipstick Negative (Negative); Occult Blood-Urine Negative /ul (Negative); Protein-Dipstick Negative (Negative); Specific Gravity, Urine 1.015 (1.002-1.030); Urine Bilirubin Dipstick Negative (Negative); Urine Clarity Clear (Clear); Urine Urobilinogen Normal (Normal); Urine pH 6.5 (5.0 - 8.0)
--- NOTE | 2019-06-11 05:14 | OB.TRI.PN ---
Progress Notes Date of Service: 06/10/19 Progress Note: cramping pelvic pain and cramping in - fht 150 reassuring cervix closed c home labor precautions Laboratory Studies: Laboratory Tests 06/10/19 Range/Units 15:04 Urine Color Yellow (Yellow) Urine Clarity Clear (Clear) Urine pH 6.5 (5.0 - 8.0) Ur Specific [place] 1.015 (1.002-1.030) Urine Protein Negative (Negative) mg/dl Urine Glucose (UA) Normal (Normal) mg/dl Urine Ketones Negative (Negative) mg/dl Urine Occult Blood Negative (Negative) /ul Urine Nitrite Negative (Negative) Urine Bilirubin Negative (Negative) mg/dL Urine Urobilinogen Normal (Normal) mg/dl Ur Leukocyte Esterase 25 H (Negative) /ul Multi Select Codes - Urinary/Genital Urinary/Genital CPT Codes: Other Procedure See Report - no charge
--- NOTE | 2019-07-21 09:42 | CASEMGMT ---
Social Work Labor and Delivery Unit Received call from this patient who is and seeing Dr. Su for obstetric care. Patient inquiring about community resources due to change in financial status. Emotional support offered. Educated to, and emailed (at patient's request) information on cribs for kids program, [employer] car seat program, and then contacts for [facility] and WIC. Patient was given this conventional mortgage underwriter's contact information should patient have any other questions about information provided this date. -DEBORAH Keller, INVASIVE MANAGER
== END 2019-06-10 16:15 | disposition home or self-care (01) ==
LOC: WPOUT 13:34 → WP 13:35
PROVIDERS: Family Provider Internal Medicine; PCP Internal Medicine; Referring Provider Obstetrics & Gynecology; Visit Provider Obstetrics & Gynecology
DX: O26.899 Other specified pregnancy related conditions, unspecified trimester (principal); R10.2 Pelvic and perineal pain
CPT/HCPCS: 81002; 87086; 87088; 99218; G0378

== ENCOUNTER 2019-08-06 13:22 | Emergency (ER) | payer OTHER, SELFPAY ==
[2019-07-20 15:54] VITALS: BMI 42.7
[2019-08-06 13:23] VITALS: BP 121/70; PULSE 98; RESP 22; TEMP 36.7; O2SAT 95; BMI 45.3
[2019-08-06 15:13] VITALS: O2SAT 96
[2019-08-06 15:15] VITALS: BP 102/69; PULSE 90; RESP 21; O2SAT 96
--- NOTE | 2019-08-06 15:38 | EKG12_ITS ---
Test Reason : SOB Blood Pressure : / mmHG Vent. Rate : 088 BPM Atrial Rate : 088 BPM P-R Int : 136 ms QRS Dur : 160 ms QT Int : 394 ms P-R-T Axes : 039 -56 074 degrees QTc Int : 476 ms Atrial-sensed ventricular-paced rhythm Abnormal ECG Confirmed by DAILY BOWENS, LEVI ([id number]), photographic editor TAWANDA CATES ([id number]) on 08/10/2019 12:30:47 PM Referred By: SHERIDAN Confirmed By:LEVI AMBROSIO MD
--- NOTE | 2019-08-06 15:45 | ED.DCSUM_ITS ---
History of Present Illness Chief Complaint: Shortness of Breath Informant: Patient Onset: Today Timing: Continuous Quality: Dyspnea on exertion Narrative: Patient is a 23-year-old female that is currently 30 weeks and on Lovenox for PE that was diagnosed at 8 weeks gestation presenting with shortness of breath. She was sweeping when they were preparing the nursery when she started to feel short of breath. Seems to be worse with exertion. She states her chest feels tight. She denies associated cough or fever. She states she is feeling well earlier today and yesterday. She denies any sense abdominal pain, nausea or change in bowel habits. She denies any urinary symptoms. Is having normal activity. Patient did not take her Lovenox this morning. She states she is missed 2 doses total in the last week. She is otherwise been compliant with her Lovenox. Patient also has a history of a third-degree heart block with pacemaker. She is told her battery needs to be replaced when she is 6 weeks . She had a battery interrogated last week. She denies any swelling of her legs. She denies any other complaints at this time. Past Medical History - Allergies and Home Meds Allergies/Adverse Reactions: Allergies No Known Allergies Allergy (Verified 08/06/19 13:23) Primary Care Physician: Alie Mejía MD [Primary Care Provider] - Past Medical History: - - PE, heart block with subsequent pacemaker placement Surgical History: - - Pacemaker Lives: With Family Smoking Status: Never smoker Review of Systems General: Denies: Chills, Fever, Sweats Eyes: Denies: Visual changes - bilaterally, Diplopia ENT: Denies: Rhinorrhea, Sore throat Cardiovascular: Reports: Chest pain - Tightness. Denies: Palpitations Respiratory: Reports: Dyspnea. Denies: Cough, Dyspnea on exertion Gastrointestinal: Denies: Abdominal pain, Nausea, Vomiting, Diarrhea, Melena, Hematochezia Genitourinary: Denies: Dysuria, Hematuria, Frequency Musculoskeletal: Denies: Back pain, Extremity Pain Skin: Denies: Rash, Wounds Neurological: Denies: Headache, Weakness, Numbness Physical Exam Vital Signs/Narrative: Vital Signs Temp Pulse Resp BP Pulse Ox 08/06/19 15:15 90 21 H 102/69 96 08/06/19 13:23 98.1 F 98 22 H 121/70 H 95 Inital Vital Signs reviewed: Yes General: Well nourished, Well developed, Obese, No Acute Distress Head: Normocephalic, Atraumatic Eyes: Perrl, EOMI ENT: Moist mucous membranes, No rhinorrhea Neck: Supple, Nontender Cardiovascular: Regular rate, Regular rhythm, No murmurs Respiratory: No distress, CTA bilaterally, Chest nontender Abdomen: Soft, Nontender, Normal bowel sounds, - - Gravid abdomen consistent wit h patient's gestational dates Back: Nontender, Normal Inspection Extremities: Nontender, No edema Skin: Normal color, No rash Neurological: Alert, Oriented x3, Cranial nerves II-XII grossly intact, Normal Strength, Normal Sensation Psychological: Normal affect, Normal Mood Diagnostic/Tx/Re-eval Chest X-Ray - ED: 2 View, Read by ED Physician, Read by Radiologist, No Acute Disease Clinical Impression(s) from Imaging Studies Chest X-Ray 08/06/19 16:05 IMPRESSION: No acute cardiopulmonary disease process is seen. Chest findings appear stable in the interval. Electronically Signed: Hung Montenegro MD at 16:34 EST , Service support , Laboratory Data 08/06/19 08/06/19 08/06/19 15:54 15:54 15:54 WBC 8.8 RBC 4.17 L Hgb 11.4 L Hct 35.1 L MCV 84.2 MCH 27.3 MCHC 32.5 RDW Std Deviation 40.3 RDW Coeff of Rocael 13.2 Plt Count 271 MPV 9.5 Immature Gran % (Auto) 1.000 H Neut % (Auto) 73.6 H Lymph % (Auto) 18.4 L Sweet Grass % (Auto) 6.4 Eos % (Auto) 0.5 Baso % (Auto) 0.1 Absolute Neuts (auto) 6.5 Absolute Lymphs (auto) 1.61 Nucleated RBC % 0 Sodium 139 Potassium 3.7 Chloride 108 H Carbon Dioxide 24.0 Anion Gap 7 BUN 8 Creatinine 0.56 Estim Creat Clear Calc 115.88 Est GFR (MDRD) Af Amer 167 Est GFR (MDRD) Non-Af 138 BUN/Creatinine Ratio 14.2 Glucose 86 Calcium 9.2 Troponin I < 0.015 B-Natriuretic Peptide 9.7 Urine Color Urine Clarity Urine pH Ur Specific Hickman Urine Protein Urine Glucose (UA) Urine Ketones Urine Occult Blood Urine Nitrite Urine Bilirubin Urine Urobilinogen Ur Leukocyte Esterase Urine RBC Urine WBC Ur Squamous Epith Cells Urine Bacteria Urine Mucus 08/06/19 16:35 WBC RBC Hgb Hct MCV MCH MCHC RDW Std Deviation RDW Coeff of Rocael Plt Count MPV Immature Gran % (Auto) Neut % (Auto) Lymph % (Auto) Sweet Grass % (Auto) Eos % (Auto) Baso % (Auto) Absolute Neuts (auto) Absolute Lymphs (auto) Nucleated RBC % Sodium Potassium Chloride Carbon Dioxide Anion Gap BUN Creatinine Estim Creat Clear Calc Est GFR (MDRD) Af Amer Est GFR (MDRD) Non-Af BUN/Creatinine Ratio Glucose Calcium Troponin I B-Natriuretic Peptide Urine Color Yellow Urine Clarity Clear Urine pH 7.0 Ur Specific Hickman 1.015 Urine Protein 15 H Urine Glucose (UA) Normal Urine Ketones Negative Urine Occult Blood Negative Urine Nitrite Negative Urine Bilirubin Negative Urine Urobilinogen Normal Ur Leukocyte Esterase 100 H Urine RBC 0 SEEN Urine WBC 5-10 SEEN Ur Squamous Epith Cells 0-5 SEEN Urine Bacteria 0 SEEN Urine Mucus 0 SEEN - Rhythm Strip Rhythm Strip: paced Rate: 88 Ectopy: None - EKG Initial EKG Interpretation: Paced, - - Atrial sensed ventricular paced rhythm at a rate of 88Normal axis - Medical Decision Making Patient is evaluated for shortness of breath. Started today. She had some associated chest tightness. The symptoms are now resolving. Patient was diagnosed with a PE at 8 weeks gestation. She is currently 30 weeks gestation. She is on Lovenox. She states she has missed a couple doses but is otherwise been compliant. In an effort to not repeat CT imaging due to radiation exposure risk I checked a troponin and proBNP. These are all normal and her not showing signs of heart strain. I have a low suspicion for a large PE that could be causing her symptoms. In addition patient is hemodynamically stable. She is not have any findings consistent with an acute infiltrate. Her white blood cell count is normal. Patient is mildly anemic but again this is consistent . I did discuss with the patient and her mother that I cannot definitively rule out a PE without repeat CT but they are comfortable with conservative management at this point. In addition patient is already on appropriate treatment. She is encouraged not missed any doses. I did go over my findings with her STAVE CUTTING SUPERVISOR, Dr. Erick Castorena who is agreeable with this plan. Patient has a procurement engineer in [place] to follow-up with as needed. Discussed with Dr. Erick Castorena that possibly her shortness of breath could just be from pressure on the diaphragm from her . I feel that she stable for outpatient follow-up. Patient is counseled on signs and symptoms requiring return to the emergency room. Patient verbalizes agreement and understand this plan. Patient discharged home in stable and improved condition. ED Disposition - Plan for ED Patient: Disposition: Home or Assisted Living Diagnosis: Dyspnea Instructions: ED Dyspnea Referrals: Alie Mejía MD [Primary Care Provider] - Additional Instructions: The exact cause of your shortness of breath was not found today. You do not look like you have pneumonia or signs of any heart problems at this time. Please make sure you use your Lovenox twice a day as prescribed. Please follow- up with your STAVE CUTTING SUPERVISOR as well as your procurement engineer as needed.
--- NOTE | 2019-08-06 16:05 | RAD_ITS ---
STUDY: X-RAY CHEST REASON FOR EXAM: Female, 23 years old. INCREASED SOB OVER THE LAST 2 DAYS. -- HX OF PE WITH PREVIOUS . PATIENT STATES SHE HAS HIGH BLOOD PRESSURE AND HAD A PACEMAKER INSERTION DUE TO A 3RD DEGREE HEART BLOCK. PATIENT IS 30 WEEKS NOW. TECHNIQUE: PA and lateral views of the chest. COMPARISON: Prior study of 03/03/2019 FINDINGS: monitoring tech leads are seen. There is a bipolar left-sided pacemaker. The lungs are clear and expanded. There is no demonstrated pleural abnormality. Normal size heart. Normal mediastinum and tasia. Normal visualized pulmonary arteries. Normal visualized aortic arch and descending thoracic aorta. Normal visualized thoracic spine. Normal visualized ribs, clavicles, and shoulders. There is no demonstrated abnormality of the visualized soft tissue structures of the upper abdomen. RAD/Chest PA and Lateral IMPRESSION: No acute cardiopulmonary disease process is seen. Chest findings appear stable in the interval. Electronically Signed: Hung Montenegro MD at 16:34 EST , Service support ,
[2019-08-06 16:07] LABS: Absolute Lymphocyte Count 1.61 X10^3/uL (0.83-4.51); Absolute Neutrophil Count 6.5 X10^3/uL (2.0-7.7); Basophil# 0.01 X10^3/uL; Basophil% 0.1 % (0-1); Eosinophil# 0.04 X10^3/uL; Eosinophils% 0.5 % (0-5); Hematocrit 35.1 % (37-47); Hemoglobin 11.4 g/dL (12.0-15.0); Lymphocyte # 1.61 X10^3/ul (4.0); Lymphocyte % 18.4 % (19-41); Mean Corp Hgb Conc 32.5 g/dL (32-36); Mean Corpuscular Hgb 27.3 pg (27.0-32.0); Mean Corpuscular Volume 84.2 fL (81-99); Mean Platelet Vol. 9.5 fl (6.2-12.0); Monocyte# 0.56 X10^3/uL; Monocyte% 6.4 % (0-10); NRBC Flagged by Analyzer 0 % (0-5); Neutrophil # 6.45 X10^3/uL (2.7-7.7); Neutrophil % 73.6 % (47-70); Platelet Count 271 K/mm3 (150-450); RBC Distribution Width CV 13.2 % (11.6-14.6); RBC Distribution Width SD 40.3 fl (35.1-43.9); Red Blood Count 4.17 M/mm3 (4.2-5.4); White Blood Count 8.8 K/mm3 (4.4-11.0)
[2019-08-06 16:30] LABS: Anion Gap 7 (5-15); BUN 8 mg/dL (7-18); BUN/Creat Ratio 14.2 RATIO (10-20); Calcium,Total 9.2 mg/dL (8.5-10.1); Chloride 108 mmol/L (98-107); Creatinine, Serum 0.56 mg/dL (0.55-1.02); EST Glomerular Filtration Rate 138 mL/min (>60); Est Glom Filt Rate - Afr Amer 167 mL/min (>60); Estimated Creatinine Clearance 115.88 ml/min; Glucose 86 mg/dL (74-106); Potassium 3.7 mmol/L (3.5-5.1); Sodium Level 139 mmol/L (136-145)
[2019-08-06 16:42] LABS: BNP,B-Type NATRIURETIC PEPTIDE 9.7 pg/mL (0-100)
[2019-08-06 16:46] LABS: Bacteria 0 SEEN /hpf (None Seen); Mucous, Urine 0 SEEN /hpf (<or=2+); Red Blood Cells-Urine 0 SEEN /hpf (0-5)
[2019-08-06 17:15] VITALS: PULSE 93; O2SAT 96
[2019-08-06 17:17] LABS: Color, Urine Yellow (Yellow); Glucose, Dipstick Normal (Normal); Ketone-Dipstick Negative (Negative); Leukocyte Esterase-Dipstick 100 /ul (Negative); Nitrite-Dipstick Negative (Negative); Occult Blood-Urine Negative /ul (Negative); Protein-Dipstick 15 mg/dl (Negative); Specific Gravity, Urine 1.015 (1.002-1.030); Urine Bilirubin Dipstick Negative (Negative); Urine Clarity Clear (Clear); Urine Urobilinogen Normal (Normal)
[2019-08-06 17:23] VITALS: BP 107/57; PULSE 87; O2SAT 95
[2019-08-06 17:27] LABS: Squamous Epithelial Cells - UA 0-5 SEEN /hpf (5-10); White Blood Cells 5-10 SEEN /hpf (0-5)
[2019-08-06 18:06] VITALS: BP 101/57; PULSE 92; RESP 14; O2SAT 92
== END 2019-08-06 18:13 | disposition home or self-care (01) ==
PROVIDERS: Emergency Provider Emergency Medicine; Family Provider Internal Medicine; PCP Internal Medicine
DX: O26.893 Other specified pregnancy related conditions, third trimester (principal); R06.02 Shortness of breath; O99.413 Diseases of the circulatory system complicating pregnancy, third trimester; I44.2 Atrioventricular block, complete; O99.213 Obesity complicating pregnancy, third trimester; E66.9 Obesity, unspecified; Z3A.30 30 weeks gestation of pregnancy; Z95.0 Presence of cardiac pacemaker; Z86.711 Personal history of pulmonary embolism; Z79.01 Long term (current) use of anticoagulants
CPT/HCPCS: 71046; 80048; 81001; 83880; 84484; 85025; 93005; 99282; A4216

== ENCOUNTER → 2019-08-10 15:08 | Outpatient (CLI) | payer OTHER, SELFPAY ==
[2019-08-10 14:36] VITALS: BMI 45.3
[2019-08-10 15:33] LABS: Absolute Lymphocyte Count 1.54 X10^3/uL (0.83-4.51); Absolute Neutrophil Count 5.2 X10^3/uL (2.0-7.7); Basophil# 0.02 X10^3/uL; Basophil% 0.3 % (0-1); Eosinophil# 0.06 X10^3/uL; Eosinophils% 0.8 % (0-5); Hematocrit 33.6 % (37-47); Hemoglobin 10.9 g/dL (12.0-15.0); Lymphocyte # 1.54 X10^3/ul (4.0); Lymphocyte % 20.5 % (19-41); Mean Corp Hgb Conc 32.4 g/dL (32-36); Mean Corpuscular Hgb 27.3 pg (27.0-32.0); Mean Corpuscular Volume 84.2 fL (81-99); Mean Platelet Vol. 9.7 fl (6.2-12.0); Monocyte# 0.62 X10^3/uL; Monocyte% 8.3 % (0-10); NRBC Flagged by Analyzer 0 % (0-5); Neutrophil # 5.22 X10^3/uL (2.7-7.7); Neutrophil % 69.6 % (47-70); Platelet Count 285 K/mm3 (150-450); RBC Distribution Width SD 39.8 fl (35.1-43.9); Red Blood Count 3.99 M/mm3 (4.2-5.4); White Blood Count 7.5 K/mm3 (4.4-11.0)
[2019-08-10 15:54] LABS: Glucose Challenge Gest 1H 50g 65 mg/dL (70-140)
== END ==
LOC: PAVLAB 15:10
PROVIDERS: Family Provider Internal Medicine; PCP Internal Medicine; Referring Provider Obstetrics & Gynecology; Visit Provider Obstetrics & Gynecology
DX: Z34.90 Encounter for supervision of normal pregnancy, unspecified, unspecified trimester (principal)
CPT/HCPCS: 36415; 82950; 85025

== ENCOUNTER 2019-09-20 16:24 | Outpatient (CLI) | payer OTHER, SELFPAY ==
[2019-09-15 16:52] VITALS: BMI 45.3
[2019-09-20 16:43] VITALS: BMI 47.6
--- NOTE | 2019-09-20 17:11 | OB.TRI.PN ---
Progress Notes Date of Service: 09/20/19 Progress Note: headache and dizziness likely secondary to nl negative neurologic findings nl bps FHT: 140 Moderate variability reactive no decelerations category I tracing Mary Esther: no Contractions Multi Select Codes - Urinary/Genital Urinary/Genital CPT Codes: 26429-22 non-stress test Interp
== END 2019-09-20 17:20 | disposition home or self-care (01) ==
LOC: WPOUT 16:35 → OBT 16:36
PROVIDERS: PCP Internal Medicine; Visit Provider Obstetrics & Gynecology
DX: O99.89 Other specified diseases and conditions complicating pregnancy, childbirth and the puerperium (principal); R51 Headache; R42 Dizziness and giddiness; Z3A.00 Weeks of gestation of pregnancy not specified
CPT/HCPCS: 59025; 59050; 94760; 99218; G0378

== ENCOUNTER 2019-10-01 14:45 | Outpatient (CLI) | payer OTHER, SELFPAY ==
[2019-09-25 14:23] VITALS: BMI 47.6
--- NOTE | 2019-10-01 14:59 | OB.TRI.PN ---
Progress Notes Date of Service: 10/01/19 Progress Note: seen for headache- nl bps declined FHT: 130 Moderate variability reactive no decelerations category I tracing Halsey: irregular Contractions headache in , declines lab evaluation. likely WNL of Multi Select Codes - Urinary/Genital Urinary/Genital CPT Codes: 40798-19 non-stress test Interp
[2019-10-01 15:15] VITALS: BP 127/78; PULSE 84; TEMP 98.7
[2019-10-01 15:20] VITALS: BMI 49.6
[2019-10-01 15:26] VITALS: BP 115/65; PULSE 84
== END 2019-10-01 16:15 | disposition home or self-care (01) ==
LOC: WPOUT 14:53 → WP 14:55
PROVIDERS: PCP Internal Medicine; Referring Provider Obstetrics & Gynecology; Visit Provider Obstetrics & Gynecology
DX: O99.89 Other specified diseases and conditions complicating pregnancy, childbirth and the puerperium (principal); R51 Headache; Z3A.00 Weeks of gestation of pregnancy not specified
CPT/HCPCS: 59025; 59050; 99218; G0378

== ENCOUNTER 2019-10-10 06:56 | Inpatient (IN) | payer OTHER, SELFPAY ==
[2019-10-02 14:40] VITALS: BMI 49.6
[2019-10-10] VITALS (77 sets, daily range): BP systolic 105–207; BP diastolic 59–125; PULSE 73–211; RESP 20; TEMP 36.3–37.1; O2SAT 82–100; BMI 48.7
--- NOTE | 2019-10-10 07:20 | EKGRS_ITS ---
Test Reason : ROUTINE EKG Blood Pressure : / mmHG Vent. Rate : 096 BPM Atrial Rate : 096 BPM P-R Int : 134 ms QRS Dur : 156 ms QT Int : 388 ms P-R-T Axes : 038 -59 071 degrees QTc Int : 490 ms AV Synchronous Pacemaker Abnormal ECG Confirmed by NISH BOWENS, PIPE ([id number]), editor farm journal TAWANDA CATES ([id number]) on 10/14/2019 9:41:55 AM Referred By: WON Confirmed By:PIPE MOCK MD
[2019-10-10] MEDS: Lactated Ringers 1,000 ML 50 ML IV (07:52)
[2019-10-10 08:11] LABS: Absolute Lymphocyte Count 1.06 X10^3/uL (0.83-4.51); Absolute Neutrophil Count 5.5 X10^3/uL (2.0-7.7); Basophil# 0.02 X10^3/uL; Basophil% 0.3 % (0-1); Eosinophil# 0.06 X10^3/uL; Eosinophils% 0.8 % (0-5); Hematocrit 33.2 % (37-47); Hemoglobin 10.4 g/dL (12.0-15.0); Lymphocyte # 1.06 X10^3/ul (4.0); Mean Corp Hgb Conc 31.3 g/dL (32-36); Mean Corpuscular Hgb 24.7 pg (27.0-32.0); Mean Corpuscular Volume 78.9 fL (81-99); Mean Platelet Vol. 9.8 fl (6.2-12.0); Monocyte# 0.41 X10^3/uL; Monocyte% 5.8 % (0-10); NRBC Flagged by Analyzer 0 % (0-5); Neutrophil # 5.49 X10^3/uL (2.7-7.7); Neutrophil % 77.4 % (47-70); Platelet Count 231 K/mm3 (150-450); RBC Distribution Width CV 14.4 % (11.6-14.6); RBC Distribution Width SD 41.1 fl (35.1-43.9); Red Blood Count 4.21 M/mm3 (4.2-5.4); White Blood Count 7.1 K/mm3 (4.4-11.0)
[2019-10-10] MEDS: Oxytocin 30 units/NS 500 ml 30 UNITS/500 ML IV.SOLN IV (09:09)
--- NOTE | 2019-10-10 10:32 | HP.PCM_ITS ---
- Problem List (1) Abnormal test Status: Acute Comment: NIPT inconclusive. NT normal. Recommend Comanagement with MFM. Weekly growth US and weekly BPP weekly starting at 32 weeks (2) Acid reflux Status: Acute (3) Bilateral pulmonary embolism Status: Acute Comment: on lovenox 100mg BID for (4) Conjunctivitis Status: Acute Qualifiers: (5) GBS (group B streptococcus) UTI complicating Status: Acute Qualifiers: Comment: treated at diagnosis and needs during labor (6) Hx of cardiac pacemaker Status: Acute Comment: 03/12/13 (7) POTS (postural orthostatic tachycardia syndrome) Status: Acute (8) Status: Acute Qualifiers: Comment: MFM Anatomy US-Needs follow-up in 2 weeks to complete face/heart. CoManagement with MFM. Growth US every 4 weeks and weekly BPP starting at 32 weeks. Con't to with cardiology and MFM recommends rheumatology follow (9) Supervision of high-risk Status: Acute Qualifiers: Comment: PRR (urine Cx) SANDRO 10/16/19 PC: Milian Spouse:Reggie (10) Anxiety Status: Chronic Comment: buspar, sertraline 100mg History and Physical Date of Admission: 10/10/19 Intake Vital Signs 10/02/19 Height 5 ft 1 in 10/02/19 Weight: 265 lb 10/02/19 BMI 50.1 10/02/19 BP 126/80 H Intake Visit Reasons: 37 WK OB Landscape Photographer Required: No Is patient in pain?: No Allergies No Known Allergies Allergy (Verified 10/02/19 14:36) Medications Buspirone HCl 10 mg PO QHS 08/18/18 [History Confirmed 10/02/19] Sertraline HCl [Zoloft] 150 mg PO QHS 03/04/19 [History Confirmed 10/02/19] ondansetron 4 mg disintegrating tablet 4 mg PO Q8H PRN PRN tab 06/29/19 [History Confirmed 10/02/19] Enoxaparin Sodium 100 mg SUBCUT Q12 09/17/19 [History Confirmed 10/02/19] Last Menstral Period: 01/09/19 Zika: Zika virus screening: Negative : No PFSH PFSH Medical History Acid reflux (Acute) Anxiety (Chronic) Migraine (Acute) Third degree heart block (Acute) pe blood clot (Acute) Constipation (Resolved) Fatigue (Resolved) Nausea (Resolved) Shortness of breath (Resolved) Surgical History Hx of cardiac pacemaker (Acute) History of cholecystectomy (Acute) Hx of wisdom tooth extraction (Inactive) Family History Mother Diabetes Unknown Blood clotting disorder Social History (Updated 10/02/19 @ 15:[address] 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 Pregancy History 2 Elective abortions Hx Para 1 Spontaneous abortions Hx # Term Pregnancies 1 Ectopic pregnancies Hx # Pregnancies Multiple births # of living children 1 Past Pregnancies Del. Date Name GA/Weeks Outcome Route Bth Weight [facility]14 Milian 41 live - full term 8 lbs 8 oz. Femal e 17 hours epidural [facility] Dr Polanco severe hemorrhage HPI 37 WK OB: Details: HALI CHAVES is a 23 year old who presents for IOL secondary to lovenox in for a PE. she has done well otherwise with minimal complication, has had reassuring testing with weekly BPPs and was seen by MFM regularly. she had an anesthesia pre-delivery consult. OB Visit SANDRO Calculator Estimated Delivery Date Method Current WG Current Estimate 10/16/19 Ultrasound #1 38w 0d Other Estimates 10/16/19 LMP (Certain) 38w 0d Expected Delivery Route/Plan Labor Preferences- labor support person: rosa mckenzie pain management options preferred: epidural cut cord/dad catch: no : no PP control planned: [] discussed possible routes of delivery and associated risks: [] special requests: [] Specific Issue/Plans flu vaccine: declined tdap vaccine: declined rhogam: na LARC form signed: declined Problem list reviewed and updated with the most current plan of care details and appropriate orders placed. Relevant counseling for the gestational age provided. Continue routine care and follow up unless otherwise noted in visit notes/problem list details Initial Weight: Not Recorded Date EGA Weight BP Urine Prot Glucose FHR FuHt Pres Dilation Effaced St Visit Note 03/30/19 11w 3d 232 lb 124/80 Negative Negative 165 no vb crmaping, still having some chest discomfort, following with pcp and cariologist 05/01/19 16w 0d 234 lb 112/82 Negative Negative 160 no vb lof see mfm in 2 weeks for anatomy scan 05/29/19 20w 0d 240 lb 96/70 Negative Negative 155 no vb lof good fm having anxiety increased- discussed concerns 06/25/19 23w 6d 241 lb 6 oz 113/69 Negative Negative 147 No Vb, LOF. Good FM. 07/20/19 27w 3d 241 lb 126/82 Negative Negative 145 no vb lof good fm no regular ctx 08/10/19 30w 3d 245 lb 6 oz 113/74 Trace Negative 145 31 SM- no vb lof good fm no regular ctx 08/28/19 33w 0d 247 lb 140 34 SM- no vb lof good fm no regular ctx 09/01/19 33w 4d 249 lb 2 oz 108/68 1+ Negative 09/11/19 35w 0d 255 lb 140 SM- no vb lof good fm no regular ctx 09/15/19 35w 4d 256 lb Trace Negative 150 0 MH-Irreg CTX but not really feeling them. Reactive NST 09/25/19 37w 0d 258 lb 132/76 150 2 SM- no vb lof good fm no regular ctx 10/02/19 38w 0d 265 lb 126/80 Trace Negative 145 38 SM- no vb lof good fm no regular ctx plan IOL 39 weeks last lovenox to be 24 hours prior to IOL Notes Visit Date: 10/02/19 ??No visit notes to display Visit Date: 09/25/19 ??No visit notes to display Visit Date: 09/15/19 ??No visit notes to display Visit Date: 09/11/19 ??No visit notes to display Visit Date: 09/01/19 ??No visit notes to display Visit Date: 08/28/19 ??No visit notes to display Visit Date: 08/10/19 ??No visit notes to display Visit Date: 07/20/19 ??no vb lof good fm no regular ctx ??Anabel Su MD on 07/20/19 Visit Date: 06/25/19 ??No Vb, LOF. Good FM. ??SILVIA Roe on 06/25/19 Visit Date: 05/29/19 ??no vb lof good fm having anxiety increased- discussed concerns ??Anabel Su MD on 06/05/19 Visit Date: 05/01/19 ??no vb lof see mfm in 2 weeks for anatomy scan ??Anabel Su MD on 05/01/19 Visit Date: 03/30/19 ??no vb crmaping, still having some chest discomfort, following with pcp and cariologist ??Anabel Su MD on 03/31/19 ACOG First Trimester First Trimester: Desire for , Anticipated Course of Care, Toxoplasmosis Precations, Use of Any medications, Sexual activity, Exercise, Sauna/Hot tub use, Seat Belt use, , Indications for US and Scre ening for Aneuploidy; discussed Alcohol, discussed Tobacco Cessation, discussed Illicit/Recreational Drug/Substance Use, discussed Intimate Partner Violence, discussed Unstable Housing or discussed Environmental/Work Hazards Second Trimester Second Trimester: Signs and Symptoms of Labor, Selecting a care provider, Reproductive Life Planning, Care Planning, Tobacco Cessation, Depression/Anxiety and Intimate Partner Violence Third Trimester Third Trimester: Pain Management Plans, Labor support person(s), Immediate Postp artum Larc, Movement Monitoring and Infant Feeding Yes ; discussed Trial of Labor after Counseling or discussed Circumcision preference Diagnostics Diagnostics Diagnostics Glucose 1 Hr 50 gm 65 mg/dL (70-140) L 08/10/19 Hgb 10.9 g/dL (12.0-15.0) L 08/10/19 Hct 33.6 % (37-47) L 08/10/19 Details: HIV: Urine Culture: Sequential Screen: NIPT Screen: ROS Const Reports system reviewed and no additional complaints, except as docu Card Reports system reviewed and no additional complaints, except as docu Resp Reports system reviewed and no additional complaints, except as docu GI Reports system reviewed and no additional complaints, except as docu, Reports nausea Reports system reviewed and no additional complaints, except as docu Musc Reports system reviewed and no additional complaints, except as docu Exam Const General: cooperative, healthy appearing, comfortable, anxious HENMT Head: normal to inspection Nose: external nose normal Face and sinus: normal facial exam Neck Neck: normal visual inspection, full ROM, no lymphadenopathy Thyroid: thyroid normal Chest Chest palpation & inspection: normal inspection of the chest Resp Effort & Inspection: normal respiratory effort GI Inspection: normal to inspection Palpation: soft, other (gravid uterus) Other: infant vertex and appropriate size for gestational age Other: Cervical Exam: Extrem General: pedal edema Results POC Urinalysis 2 Dip (Clinic) Office Urine Glucose Negative Last Edit by Jewels Rodriguez on 10/02/19 14:40 Office Urine Protein Trace Last Edit by Jewels Rdoriguez on 10/02/19 14:40 Assessment & Plan Problems 1. Acute conjunctivitis of right eye, unspecified acute conjunctivitis type H10.31 2. Abnormal test O28.9 3. Group B Streptococcus urinary tract infection affecting in first trimester O23.41 4. Supervision of high risk in first trimester O 5. 38 weeks gestation of Z3A.38 6. POTS (postural orthostatic tachycardia syndrome) R00.0; I95.1 7. Bilateral pulmonary embolism I26.99 8. Hx of cardiac pacemaker Z95.0 9. Anxiety F41.9 10. Acid reflux K21.9 Patient presents IOL, plan management for , pitocin/AROM Pain management: plans epidural. GBS positive- plan pcn Management of any complications: pacemaker- had anesthesia consult previously, obtain ekg at time of admission. h/o PE in , lovenox held 24 hours prior to IOL, will restart 12 hours after regional anesthesia removed I have reviewed the [facility] and made any clinically relevant updates. Orders Orders: POC Urinalysis 2 Dip (Clinic) Today Coding Level of Care Code OB Routine Diagnoses Acute conjunctivitis of right eye, unspecified acute conjunctivitis type H10.31 ??Acute conjunctivitis type: unspecified ??Conjunctivitis type: acute ??Laterality: right Abnormal test O28.9 Group B Streptococcus urinary tract infection affecting in first trimester O23.41 ??Trimester: first trimester Supervision of high risk in first trimester O ??Trimester: first trimester 38 weeks gestation of Z3A.38 ??Weeks of gestation: 38 weeks POTS (postural orthostatic tachycardia syndrome) R00.0; I95.1 Bilateral pulmonary embolism I26.99 Hx of cardiac pacemaker Z95.0 Anxiety F41.9 Acid reflux K21.9
[2019-10-10] MEDS: Lactated Ringers 500 ML 999 ML IV ×2 (17:50→18:55)
--- NOTE | 2019-10-10 18:20 | PCM.PN.BLA ---
Progress Note arom meconium fluid reassuring FHT may need to increase pitocin to 26 mU. iupc and fse placed. cat I tracing STROKE Vital Signs/Narrative: Vital Signs Temp Pulse BP 10/10/19 18:12 98.8 F 10/10/19 17:05 98.3 F 86 120/71 10/10/19 16:17 74 110/66 10/10/19 15:14 79 119/70 10/10/19 14:38 90 131/70 H
[2019-10-10] MEDS: hydrOXYzine PAM 25 MG Capsule PO (18:39)
[2019-10-10] MEDS: fentaNYL-bupivacaine (epidural) 100 ML BAG EPIDURAL (19:36)
[2019-10-10] MEDS: Oxytocin 30 units/NS 500 ml 30 UNITS/500 ML IV.SOLN 334 UNITS IV (20:00)
--- NOTE | 2019-10-10 20:17 | OP.PCM_ITS ---
Problem List (1) Abnormal test Status: Acute Comment: NIPT inconclusive. NT normal. Recommend Comanagement with MFM. Weekly growth US and weekly BPP weekly starting at 32 weeks (2) Acid reflux Status: Acute (3) Bilateral pulmonary embolism Status: Acute Comment: on lovenox 100mg BID for (4) Conjunctivitis Status: Acute Qualifiers: (5) GBS (group B streptococcus) UTI complicating Status: Acute Qualifiers: Comment: treated at diagnosis and needs during labor (6) Hx of cardiac pacemaker Status: Acute Comment: 03/12/13 (7) POTS (postural orthostatic tachycardia syndrome) Status: Acute (8) Status: Acute Qualifiers: Comment: MFM Anatomy US-Needs follow-up in 2 weeks to complete face/heart. CoManagement with MFM. Growth US every 4 weeks and weekly BPP starting at 32 weeks. Con't to with cardiology and MFM recommends rheumatology follow (9) Supervision of high-risk Status: Acute Qualifiers: Comment: PRR (urine Cx) SANRDO 10/16/19 PC: Milian Spouse:Reggie (10) Anxiety Status: Chronic Comment: buspar, sertraline 100mg Vaginal Delivery Maternal Presentation: Medically Indicated Induction iol on lovneox Method of Induction: Pitocin Amniotic Membrane Rupture Type: Artificial Amniotic Fluid Description: Moderate meconium Final SANDRO: 10/16/19 Gestational age: 39 Weeks and 1 Days Date of Procedure: 10/10/19 Pre-Operative Diagnosis: iol on lovenox Post-Operative Diagnosis: same Surgery/ Procedure Performed: Spontaneous Vaginal Delivery Type of Anesthesia: Epidural Description of Procedure: Patient began pushing and delivered the head in the [MELISAS] presentation. The head was delivered atraumatically. The anterior and posterior shoulders delivered without complication followed by the rest of the and the was placed on the maternal abdomen. Delayed cord clamping was employed for approximately 60 seconds. Cord was clamped and cut and gentle traction was applied to the cord and the placenta delivered spontaneously immediately following it was noted to be intact with three-vessel cord. The perineum and vagina were inspected and [noted to have no laceration]. EBL was 150cc. Patient and tolerated delivery well. Presentation: MELISSA Placental Delivery Description: Spontaneous Placenta Disposition: [facility] Cord Vessel Description: 3 Vessels Cord Entanglement: None Estimated Blood Loss: 150 A gender: Female Episiotomy Description: None Laceration: None Medications given after delivery: IV Pitocin Complications: None Multi Select Codes - Urinary/Genital Urinary/Genital CPT Codes: 76521 Vaginal Delivery [facility]
[2019-10-10] MEDS: Sertraline 50 MG Tablet 150 MG PO (22:51)
[2019-10-10] MEDS: busPIRone 5 MG Tablet 10 MG PO (22:51)
[2019-10-10] MEDS: Naproxen 250 MG Tablet 500 MG PO (22:52)
[2019-10-10] MEDS: 0.9% Saline Lock 10 ML Syringe IV (22:52)
[2019-10-11] VITALS (9 sets, daily range): BP systolic 115–135; BP diastolic 69–81; PULSE 82–104; RESP 16–20; TEMP 35.8–36.8; O2SAT 97–98
--- NOTE | 2019-10-11 00:19 | NURSING ---
2310-pt up to br and c/o feeling sob. questioning if this is normal. explained yes d/t body just having gone through an intense/quick delivery. voided 100cc. linen changed to bed and melissa pad placed. and will get back into bed.
[2019-10-11] MEDS: Sodium Chloride 0.65% 1 SPRAY SPRAY.BTL 2 SPRAY NASAL ×2 (00:30→05:12)
--- NOTE | 2019-10-11 08:05 | PCM.PN.OB ---
Subjective: doing well no complaints pain controlled no CP SOB N V ambulating well tolerating po lochia moderate, going well - Physical Exam Vitals/I&O's: Vital Signs Temp Pulse Resp BP Pulse Ox 97.6 F L 84 20 H 124/76 H 98 10/11/19 04:38 10/11/19 04:38 10/11/19 04:38 10/11/19 04:38 10/10/19 23:23 Oxygen Delivery Method Room Air Weight: 257 lb 15.053 oz Body Mass Index (BMI) 48.7 Intake and Output for Last 24 Hours 10/09/19 10/10/19 10/12/19 23:59 23:59 00:59 Intake Total 2731.84 / 2731.84 Output Total 700 / 700 200 / 200 Balance 2031.84 / 2031.84 -200 / -200 General: Alert, Oriented x3 Laboratory Results 10/10/19 07:52: WBC 7.1, RBC 4.21, Hgb 10.4 L, Hct 33.2 L, MCV 78.9 L, MCH 24.7 L, MCHC 31.3 L, RDW Std Deviation 41.1, RDW Coeff of Rocael 14.4, Plt Count 231, MPV 9.8, Immature Gran % (Auto) 0.700, Neut % (Auto) 77.4 H, Lymph % (Auto) 15.0 L, [place] % (Auto) 5.8, Eos % (Auto) 0.8, Baso % (Auto) 0.3, Absolute Neuts (auto) 5.5, Absolute Lymphs (auto) 1.06, Nucleated RBC % 0 10/10/19 07:52: Blood Type A POSITIVE, Antibody Screen NEGATIVE Current Medications Acetaminophen (Tylenol) 1,000 mg PO Q8H PRN PRN PRN Reason: Pain Score 1-3/10 Bisacodyl (Dulcolax) 10 mg RECTAL UD PRN PRN Reason: If no BM Buspirone HCl (Buspar) 10 mg PO QHS [facility] Last Admin: 10/10/19 22:51 Dose: 10 mg Documented by: Dibucaine (Dibucaine) 1 applic TOPICAL TID PRN PRN; Protocol PRN Reason: Discomfort Enoxaparin Sodium (Lovenox) 100 mg SC Q12 [facility] Hydrocortisone (Hytone) 1 applic TOPICAL TID PRN PRN; Protocol PRN Reason: Discomfort Hydroxyzine Pamoate (Vistaril Pamoate Capsule) 25 mg PO 4X/DAY PRN PRN PRN Reason: ANXIETY Last Admin: 10/10/19 18:39 Dose: 25 mg Documented by: Methylergonovine Maleate (Methergine) 0.2 mg IM X1 PRN PRN Reason: Excess bleeding/uterine atony Naproxen (Naprosyn) 500 mg PO Q8H PRN PRN PRN Reason: Pain Score 1-3/10 Last Admin: 10/10/19 22:52 Dose: 500 mg Documented by: Ondansetron HCl (Zofran) 4 mg IV Q4H PRN PRN PRN Reason: Nausea Oxycodone HCl (Oxyir) 5 - 10 mg PO Q4H PRN PRN PRN Reason: Pain Score 4-10/10 Senna/Docusate Sodium (Senokot-S, Silvia-Colace) 1 - 2 tablet PO DAILY PRN PRN PRN Reason: Constipation Sertraline HCl (Zoloft) 150 mg PO QHS [facility] Last Admin: 10/10/19 22:51 Dose: 150 mg Documented by: Simethicone (Mylicon) 80 mg PO PCHS PRN PRN Reason: Indigestion/Stomach pain Sodium Chloride () 5 - 15 ml IV UD PRN PRN Reason: SALINE FLUSH Last Admin: 10/10/19 22:52 Dose: 10 ml Documented by: Sodium Chloride ([place] Nasal [place]) 2 spray NASAL Q1H PRN PRN PRN Reason: NASAL CONGESTION Last Admin: 10/11/19 05:12 Dose: 2 spray Documented by: Medical Necessity - Tobacco Use Smoking Status: Never smoker Assessment/Plan All Active Problems (Last Reviewed 10/02/19 @ 14:36 by Jewels Rodriguez) Conjunctivitis (Acute) Abnormal test (Acute) GBS (group B streptococcus) UTI complicating (Acute) Supervision of high-risk (Acute) (Acute) POTS (postural orthostatic tachycardia syndrome) (Acute) Bilateral pulmonary embolism (Acute) Hx of cardiac pacemaker (Acute) Acid reflux (Acute) Constipation (Resolved) Fatigue (Resolved) Gallbladder sludge (Resolved) Nausea (Resolved) Right upper quadrant abdominal pain (Resolved) Shortness of breath (Resolved) s/p PPD # 1 1. routine post delivery care 2. breast feeding- support given 3. rh positive 4. rubella immune
[2019-10-11] MEDS: Acetaminophen 500 MG Tablet 1000 MG PO ×2 (09:41→17:46)
[2019-10-11] MEDS: Enoxaparin 100 MG/ML Syringe SC ×2 (10:54→23:36)
[2019-10-11] MEDS: Sertraline 50 MG Tablet 150 MG PO (23:36)
[2019-10-11] MEDS: busPIRone 5 MG Tablet 10 MG PO (23:36)
[2019-10-12 01:50] VITALS: BP 124/77; PULSE 77; RESP 16; TEMP 36.1; O2SAT 98
[2019-10-12 01:51] VITALS: BP 124/77; PULSE 74
[2019-10-12] MEDS: Acetaminophen 500 MG Tablet 1000 MG PO (02:32)
--- NOTE | 2019-10-12 08:14 | PN.OBGYN_ITS ---
Subjective: Doing well, no complaints.Pain controlled. Denies CP, SOB, N,V. Ambulating well, tolerating po. Lochia moderate, bottle feeding. - Physical Exam Vitals/I&O's: Vital Signs Temp Pulse Resp BP Pulse Ox 97.0 F L 74 16 124/77 H 98 10/12/19 01:50 10/12/19 01:51 10/12/19 01:50 10/12/19 01:51 10/12/19 01:50 Oxygen Delivery Method Room Air Weight: 257 lb 15.053 oz Body Mass Index (BMI) 48.7 Intake and Output for Last 24 Hours 10/10/19 10/11/19 10/12/19 22:59 23:59 23:59 Intake Total Output Total Balance General: Alert, Oriented x3 Abdomen: Soft, Non Tender, - - FF below U Current Medications Acetaminophen (Tylenol) 1,000 mg PO Q8H PRN PRN PRN Reason: Pain Score 1-3/10 Last Admin: 10/12/19 02:32 Dose: 1,000 mg Documented by: Bisacodyl (Dulcolax) 10 mg RECTAL UD PRN PRN Reason: If no BM Buspirone HCl (Buspar) 10 mg PO QHS [facility] Last Admin: 10/11/19 23:36 Dose: 10 mg Documented by: Dibucaine (Dibucaine) 1 applic TOPICAL TID PRN PRN; Protocol PRN Reason: Discomfort Enoxaparin Sodium (Lovenox) 100 mg SC Q12 [facility] Last Admin: 10/11/19 23:36 Dose: 100 mg Documented by: Hydrocortisone (Hytone) 1 applic TOPICAL TID PRN PRN; Protocol PRN Reason: Discomfort Hydroxyzine Pamoate (Vistaril Pamoate Capsule) 25 mg PO 4X/DAY PRN PRN PRN Reason: ANXIETY Last Admin: 10/10/19 18:39 Dose: 25 mg Documented by: Methylergonovine Maleate (Methergine) 0.2 mg IM X1 PRN PRN Reason: Excess bleeding/uterine atony Ondansetron HCl (Zofran) 4 mg IV Q4H PRN PRN PRN Reason: Nausea Oxycodone HCl (Oxyir) 5 - 10 mg PO Q4H PRN PRN PRN Reason: Pain Score 4-10/10 Senna/Docusate Sodium (Senokot-S, Silvia-Colace) 1 - 2 tablet PO DAILY PRN PRN PRN Reason: Constipation Sertraline HCl (Zoloft) 150 mg PO QHS [facility] Last Admin: 10/11/19 23:36 Dose: 150 mg Documented by: Simethicone (Mylicon) 80 mg PO PCHS PRN PRN Reason: Indigestion/Stomach pain Sodium Chloride () 5 - 15 ml IV UD PRN PRN Reason: SALINE FLUSH Last Admin: 10/10/19 22:52 Dose: 10 ml Documented by: Sodium Chloride ([place] Nasal [place]) 2 spray NASAL Q1H PRN PRN PRN Reason: NASAL CONGESTION Last Admin: 10/11/19 05:12 Dose: 2 spray Documented by: Medical Necessity - Tobacco Use Smoking Status: Never smoker Assessment/Plan All Active Problems (Last Reviewed 10/02/19 @ 14:36 by Jewels Rodriguez) Conjunctivitis (Acute) Abnormal test (Acute) GBS (group B streptococcus) UTI complicating (Acute) Supervision of high-risk (Acute) (Acute) POTS (postural orthostatic tachycardia syndrome) (Acute) Bilateral pulmonary embolism (Acute) Hx of cardiac pacemaker (Acute) Acid reflux (Acute) Constipation (Resolved) Fatigue (Resolved) Gallbladder sludge (Resolved) Nausea (Resolved) Right upper quadrant abdominal pain (Resolved) Shortness of breath (Resolved) s/p PPD # 2 1. routine post delivery care 2. bottle feeding- support given 3. rh positive 4. rubella immune 5. aware to continue lovenox for 2 weeks and see PCP in that time frame, has Rx 6. home today.
--- NOTE | 2019-10-12 08:16 | DCINST_ITS ---
Additional Instructions: If you experience any of the following, contact your healthcare provider. * Bleeding that soaks a pad every hour for 2 hours * Fever 100.4 or higher * Unrelieved incision or abdominal pain * Swelling, redness, discharge or bleeding from your incision or episiotomy site * Your incision begins to separate * Problems urinating (including inability to urinate or burning while urinating). * Visual changes * Severe headache * Flu-like symptoms * Pain or redness in one of both of your breasts * Pain, warmth, tenderness or swelling in your legs, especially the calf area * Frequent nausea and vomiting * Symptoms of depression or anxiety If you experience any of the following, call 911 or go to the nearest Emergency Room. * Chest pain * Problems breathing * Seizure activity * Partial or complete paralysis of a body part, slurred speech, weakness or drooping of the face, or a sudden inability to walk or hold your balance Allergies/Adverse Reactions: Allergies No Known Allergies Allergy (Verified 10/10/19 07:21) Medications to take at Discharge Buspirone HCl 10 mg PO QHS 08/18/18 Sertraline HCl [Zoloft] 150 mg PO QHS 03/04/19 ondansetron 4 mg disintegrating tablet 4 mg PO Q8H PRN PRN tab 06/29/19 Enoxaparin Sodium 100 mg SUBCUT Q12 09/17/19 Primary Care Physician: Alie Mejía MD [Primary Care Provider] - Test Results: Test results from this visit will be discussed in further detail at your follow- up appointment, if applicable.
--- NOTE | 2019-10-12 08:16 | PCM.DCVAG ---
Additional Instructions: If you experience any of the following, contact your healthcare provider. Bleeding that soaks a pad every hour for 2 hours Fever 100.4 or higher Unrelieved incision or abdominal pain Swelling, redness, discharge or bleeding from your incision or episiotomy site Your incision begins to separate Problems urinating (including inability to urinate or burning while urinating). Visual changes Severe headache Flu-like symptoms Pain or redness in one of both of your breasts Pain, warmth, tenderness or swelling in your legs, especially the calf area Frequent nausea and vomiting Symptoms of depression or anxiety If you experience any of the following, call 911 or go to the nearest Emergency Room. Chest pain Problems breathing Seizure activity Partial or complete paralysis of a body part, slurred speech, weakness or drooping of the face, or a sudden inability to walk or hold your balance Allergies/Adverse Reactions: Allergies No Known Allergies Allergy (Verified 10/10/19 07:21) Medications to take at Discharge Buspirone HCl 10 mg PO QHS 08/18/18 Sertraline HCl [Zoloft] 150 mg PO QHS 03/04/19 ondansetron 4 mg disintegrating tablet 4 mg PO Q8H PRN PRN tab 06/29/19 Enoxaparin Sodium 100 mg SUBCUT Q12 09/17/19 Primary Care Physician: Alie Mejía MD [Primary Care Provider] - Test Results: Test results from this visit will be discussed in further detail at your follow-up appointment, if applicable.
[2019-10-12 08:50] VITALS: BP 125/83; PULSE 89; RESP 14; TEMP 36.7
[2019-10-12] MEDS: Enoxaparin 100 MG/ML Syringe SC (08:54)
== END 2019-10-12 12:05 | disposition home or self-care (01) | DRG 807 ==
PROVIDERS: Admitting Provider Obstetrics & Gynecology; PCP Internal Medicine; Visit Provider Obstetrics & Gynecology
DX: O99.42 Diseases of the circulatory system complicating childbirth (principal); Z37.0 Single live birth; I49.8 Other specified cardiac arrhythmias; O99.344 Other mental disorders complicating childbirth; F41.9 Anxiety disorder, unspecified; O99.824 Streptococcus B carrier state complicating childbirth; O99.02 Anemia complicating childbirth; D64.9 Anemia, unspecified; O77.0 Labor and delivery complicated by meconium in amniotic fluid; O99.62 Diseases of the digestive system complicating childbirth; K21.9 Gastro-esophageal reflux disease without esophagitis; Z3A.39 39 weeks gestation of pregnancy; Z95.0 Presence of cardiac pacemaker; Z86.711 Personal history of pulmonary embolism
CPT/HCPCS: 59025; 59050; 85025; 86850; 86900; 86901; 93005; 99218; J7120; A4216; G0378

== ENCOUNTER → 2020-04-12 17:12 | Outpatient (CLI) | payer OTHER, MEDICAID, SELFPAY ==
[2020-04-09 12:06] VITALS: BMI 44.0
== END ==
PROVIDERS: PCP Internal Medicine; Referring Provider Physician Assistant Medical; Visit Provider Physician Assistant Medical
DX: Z20.828 Contact with and (suspected) exposure to other viral communicable diseases (principal)
CPT/HCPCS: 87635; C9803; U0003

== ENCOUNTER → 2021-03-26 | Outpatient (CLI) | payer OTHER, MEDICAID, SELFPAY | END | disposition home or self-care (01) | LOC: COVBMS 12:09 | PROVIDERS: PCP Internal Medicine; Visit Provider Physician Assistant | DX: R09.81 Nasal congestion (principal) | CPT/HCPCS: 87635; U0005; U0003 ==

== ENCOUNTER 2022-12-01 09:55 | Emergency (ER) | payer OTHER, MEDICAID, SELFPAY ==
[2022-12-01 09:56] VITALS: BP 129/93; PULSE 117; RESP 18; TEMP 36.3; O2SAT 98; BMI 44.2
--- NOTE | 2022-12-01 10:20 | ED.VIS.GI ---
HPI HPI - GI History of Present Illness Chief Complaint: Nausea/Vomiting/Diarrhea Abdominal Pain/Flank Pain Onset: Days (3) Context: Sudden Onset Timing: Continuous Quality: Aching and Dull Location: RUQ Worsened by: Nothing Relieved by: Nothing Nausea/Vomiting/Emesis GI Symptom: Positive for Nausea; Negative for Vomiting Diarrhea/Melena/Hematochezia GI Symptom: Positive for Diarrhea; Negative for Melena or Hematochezia Stool Quality: Positive for Watery Associated Symptoms Associated Symptoms: Negative for Dysuria, Frequency or Hematuria Narrative Narrative: Patient presents with abdominal pain, diarrhea, and nausea that has been getting worse over the last 3 days. Patient states it came on rather suddenly. Patient states it has been constant. Patient describes it as aching and dull. Patient states her pain is over the right ribs and right upper quadrant. Patient states nothing makes it better nothing makes it worse. Patient denies any vomiting. Patient states she has been taking Pepto-Bismol and Zofran with no relief. Patient does admit to some black stools but states that it is likely from the Pepto-Bismol. PFSH PFSH Medical History Abnormal test ADHD (attention deficit hyperactivity disorder) Anxiety Bilateral pulmonary embolism Complete AV block Constipation Exposure to confirmed case of COVID-19 Fatigue GBS (group B streptococcus) UTI complicating GERD (gastroesophageal reflux disease) Migraine Nausea Obesity, morbid, BMI 40.0-49.9 OCD (obsessive compulsive disorder) Panic disorder Presence of cardiac pacemaker Pulmonary embolism Shortness of breath Third degree heart block Home Medications hydroxyzine pamoate 25 mg capsule (Vistaril) 25 mg PO TID PRN Anxiety 06/21/22 [History Last Taken Unknown] ondansetron 4 mg disintegrating tablet 4 mg PO Q12H PRN nausea and vomiting 06/21/22 [History Last Taken Unknown] rivaroxaban 20 mg tablet (Xarelto) 20 mg PO QPM 06/21/22 [History Last Taken Unknown] sertraline 100 mg tablet (Zoloft) 200 mg PO DAILY 06/21/22 [History Last Taken Unknown] Allergy/AdvReac Type Severity Reaction Status Date / Time No Known Allergies Allergy Verified 12/01/22 09:58 Family History Mother Diabetes Unknown Blood clotting disorder Grandfather CHF (congestive heart failure) Surgical History History of cholecystectomy (~2019) Hx of cardiac pacemaker Hx of wisdom tooth extraction Social History number of children: 1 current occupational status: employed current occupation: [employer] Smoking Status: Never smoker second hand exposure: No alcohol intake: never substance use type: does not use caffeine: No seatbelt use: always do you feel safe at home: Yes 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[employer] ROS ED Constitutional Constitutional ED: Reports chills; Denies fever(s) Eyes Eyes: Denies blurry vision or change in vision ENT ENT ED: Denies rhinorrhea or sore throat Cardiovascular Cardiovascular: Denies chest pain or palpitations Respiratory/Chest Respiratory/Chest: Denies cough or dyspnea Gastrointestinal Gastrointestinal: Reports abdominal pain, diarrhea and nausea; Denies vomiting Genitourinary Genitourinary ED: Denies dysuria or hematuria Musculoskeletal Musculoskeletal: Denies back pain or neck pain Integumentary Denies abscess or rash Neurologic Neurologic: Denies headache(s) or weakness Allergic/Immunologic Allergic/Immunologic ED: Denies mouth swelling or urticaria EXAM Physical Exam Const Vital Signs: 12/01/22 09:56 12/01/22 12:35 Temperature 97.3 F L Temperature Source Temporal Pulse Rate 117 H 114 H Respiratory Rate 18 16 Blood Pressure 129/93 H 128/88 H Blood Pressure Mean 105 101 Pulse Ox 98 100 Oxygen Delivery Method Room Air Room Air Positive well nourished and well developed General Appearance ED: well developed HEENT Reports moist mucous membranes Neck supple and no JVD Resp normal respiratory effort and clear to auscultation bilaterally Cardio regular rate, regular rhythm and no murmurs GI normal to inspection, nondistended, normoactive bowel sounds Palpation: soft and tender epigastric and RUQ; Negative for guarding or rebound tenderness present Extremity normal to inspection General Extremety ED: Negative for edema or tenderness General Extremity: Negative for edema Neuro oriented x3, CN's II-XII intact bilaterally and no sensory deficits noted Sensorium / Orientation: alert Motor Exam: strength 5/5 throughout Psych mental status grossly normal Skin no rashes or lesions noted MDM MDM MDM Narrative Medical decision making narrative: Differential diagnosis includes gastritis, gastric ulcer, pancreatitis, gastroenteritis, bowel obstruction, perforation, pyelonephritis, and urinary tract infection. CBC will be obtained to assess for leukocytosis and anemia. Comprehensive metabolic profile will be obtained to assess for hepatic function, renal function, and electrolyte abnormality. Lipase will be obtained to assess for pancreatitis. Serum hCG will be obtained to assess for status. Urinalysis will be obtained to assess for urinary tract infection. CT scan of the abdomen pelvis will be obtained to assess for bowel obstruction and perforation. Lab Data Lab results narrative: CBC was reviewed and was within normal limits. Comprehensive metabolic profile was reviewed and was essentially within normal limits. Lipase was reviewed and was normal. Serum hCG was reviewed and was negative. Urinalysis was reviewed. There is no evidence of urinary tract infection or hematuria. Labs: Laboratory Results - last 24 hr 12/01/22 12/01/22 12/01/22 10:55 10:55 10:55 WBC 6.1 RBC 5.68 H Hgb 12.9 Hct 42.4 MCV 74.6 L MCH 22.7 L MCHC 30.4 L RDW Std Deviation 40.4 RDW Coeff of Rocael 15.2 H Plt Count 409 MPV 9.4 Immature Gran % (Auto) 0.300 Neut % (Auto) 81.7 H Lymph % (Auto) 11.3 L [place] % (Auto) 5.5 Eos % (Auto) 1.0 Baso % (Auto) 0.2 Absolute Neuts (auto) 5.0 Absolute Lymphs (auto) 0.69 L Nucleated RBC % 0 Sodium 136 Potassium 3.0 L Chloride 109 H Carbon Dioxide 21.0 Anion Gap 6 BUN 13 Creatinine 0.72 Estim Creat Clear Calc 91.18 Est GFR (MDRD) Af Amer 124 Est GFR (MDRD) Non-Af 102 BUN/Creatinine Ratio 18.1 Glucose 102 Calcium 8.7 Total Bilirubin 0.30 AST 17 ALT 25 Alkaline Phosphatase 136 H Total Protein 8.3 H Albumin 3.7 Globulin 4.6 H Albumin/Globulin Ratio 0.8 L Lipase 20 Serum , Qual NEGATIVE Urine Color Urine Clarity Urine pH Ur Specific [place] Urine Protein Urine Glucose (UA) Urine Ketones Urine Occult Blood Urine Nitrite Urine Bilirubin Urine Urobilinogen Ur Leukocyte Esterase 12/01/22 13:50 WBC RBC Hgb Hct MCV MCH MCHC RDW Std Deviation RDW Coeff of Rocael Plt Count MPV Immature Gran % (Auto) Neut % (Auto) Lymph % (Auto) [place] % (Auto) Eos % (Auto) Baso % (Auto) Absolute Neuts (auto) Absolute Lymphs (auto) Nucleated RBC % Sodium Potassium Chloride Carbon Dioxide Anion Gap BUN Creatinine Estim Creat Clear Calc Est GFR (MDRD) Af Amer Est GFR (MDRD) Non-Af BUN/Creatinine Ratio Glucose Calcium Total Bilirubin AST ALT Alkaline Phosphatase Total Protein Albumin Globulin Albumin/Globulin Ratio Lipase Serum , Qual Urine Color Yellow Urine Clarity Clear Urine pH 6.5 Ur Specific [place] 1.010 Urine Protein 30 H Urine Glucose (UA) Normal Urine Ketones Negative Urine Occult Blood 10 H Urine Nitrite Negative Urine Bilirubin Negative Urine Urobilinogen Normal Ur Leukocyte Esterase 25 H Radiography Diagnostic Testing: Clinical Impression(s) from Imaging Studies Abdomen/Pelvis CT 12/01/22 10:26 IMPRESSION: Mildly thick-walled appearance of the small bowel with mild edema and small lymph nodes in the mesentery with accompanying diffuse air-fluid levels and fluid within the colon highly suspicious for pattern of enterocolitis with mild mesenteric adenitis. Recommend correlation with viral illness. No hydronephrosis. No appendicitis. Electronically Signed: Shaila Browning MD at 13:40 EDT , CT scan of the abdomen and pelvis was obtained. There is mildly thick-walled small bowel and mesenteric lymph nodes. This is suspicious for enterocolitis and mesenteric adenitis. This was interpreted by the radiologist and was also independently reviewed by myself. Treatment and Re-Evaluation :: Patient was given IV fluids, Zofran, and morphine. Patient was feeling better on reevaluation. Patient was advised of her findings. Patient was instructed to start with a liquid diet and then advance to a bland diet and then to a regular diet if she feels better. Patient was instructed to continue her Zofran as needed. Patient was instructed to follow-up with her primary care physician in 3 to 5 days. Patient understood and was agreeable with the plan. All questions were answered. Discharge Plan Triage Chief Complaint: Nausea/Vomiting/Diarrhea ED Provider: Wallace Osorio Dx/Rx/DC Orders Clinical Impression: Viral gastroenteritis, Obesity, morbid, BMI 40.0-49.9 Instructions: ED Gastroenteritis, Viral (Adult) Prescriptions: No Action ondansetron 4 mg tablet,disintegrating 4 mg PO Q12H PRN (Reason: nausea and vomiting) sertraline [Zoloft] 100 mg tablet 200 mg PO DAILY hydroxyzine pamoate [Vistaril] 25 mg capsule 25 mg PO TID PRN (Reason: Anxiety) Xarelto 20 mg tablet 20 mg PO QPM Label Comments: TAKE 1 TABLET BY MOUTH EVERY DAY WITH DINNER Primary Care Provider: Alie Mejía Referrals: Alie Mejía MD [Primary Care Provider] - 3-5 Days Disposition Disposition: Home, Self Care
--- NOTE | 2022-12-01 10:26 | CT_ITS ---
STUDY: CT ABDOMEN AND PELVIS WITH CONTRAST REASON FOR EXAM: Female, 27 years old. Abdominal pain -- IV PO Contrast RADIATION DOSAGE (If Supplied By Facility): CTDIvol = ( 23.72 ) mGy, DLP = ( 1222.73 ) mGycm TECHNIQUE: Transaxial images were obtained from the dome of the diaphragm to the symphysis pubis without oral contrast. IV 100mL Isovue-370 was administered. Sagittal and coronal images were reconstructed. Individualized dose optimization techniques were used for this CT. COMPARISON: None. FINDINGS: The visualized lung bases are unremarkable. Partially visualized pacer lead overlying the right side of the heart. Normal liver. There is non-visualization of the gallbladder, which may be secondary to either contraction or a prior cholecystectomy. Normal spleen. Normal pancreas. Normal bilateral adrenal glands. Normal right kidney. Normal left kidney. There is a small hiatal hernia. There is a mildly thick-walled appearance of the left upper quadrant small bowel with associated small adjacent lymph nodes measuring up to 7 mm. There are air-fluid levels within the colon particularly the descending colon and rectum. The patient likely has diarrhea. There is a fluid-filled appearance of most of the colon. The appendix is visualized and appears normal. Normal abdominal aorta. Normal inferior vena cava. There are nonspecific subcentimeter retroperitoneal lymph nodes. Normal urinary bladder. Normal visualized uterus. Normal abdominal wall. There are diffuse degenerative changes of the visualized lumbar spine. There is degenerative change of the SI joints. CT/Abdomen/Pelvis WITH Contrast IMPRESSION: Mildly thick-walled appearance of the small bowel with mild edema and small lymph nodes in the mesentery with accompanying diffuse air-fluid levels and fluid within the colon highly suspicious for pattern of enterocolitis with mild mesenteric adenitis. Recommend correlation with viral illness. No hydronephrosis. No appendicitis. Electronically Signed: Shaila Browning MD at 13:40 EDT ,
[2022-12-01] MEDS: Ondansetron 4 MG/2 ML Vial IV (10:50)
[2022-12-01] MEDS: 0.9% Normal Saline 1,000 ML 1000 ML IV ×2 (10:50→13:45)
[2022-12-01 11:03] LABS: Absolute Lymphocyte Count 0.69 X10^3/uL (0.83-4.51); Basophil# 0.01 X10^3/uL; Basophil% 0.2 % (0-1); Eosinophil# 0.06 X10^3/uL; Hematocrit 42.4 % (37-47); Hemoglobin 12.9 g/dL (12.0-15.0); Lymphocyte # 0.69 X10^3/ul (0.83-4.51); Lymphocyte % 11.3 % (19-41); Mean Corp Hgb Conc 30.4 g/dL (32-36); Mean Corpuscular Hgb 22.7 pg (27.0-32.0); Mean Corpuscular Volume 74.6 fL (81-99); Mean Platelet Vol. 9.4 fl (6.2-12.0); Monocyte# 0.34 X10^3/uL; Monocyte% 5.5 % (0-10); NRBC Flagged by Analyzer 0 % (0-5); Neutrophil # 5.01 X10^3/uL (2.7-7.7); Neutrophil % 81.7 % (47-70); Platelet Count 409 K/mm3 (150-450); RBC Distribution Width CV 15.2 % (11.6-14.6); RBC Distribution Width SD 40.4 fl (35.1-43.9); Red Blood Count 5.68 M/mm3 (4.2-5.4); White Blood Count 6.1 K/mm3 (4.4-11.0)
[2022-12-01 11:15] LABS: Internal QC Validated? YES +Cl - CLEAR BKGD; Pregnancy, Serum, hCG Quali. NEGATIVE Negative
[2022-12-01 11:23] LABS: ALB/GLOB Ratio 0.8 RATIO (0.9-2.4); AST(SGOT) 17 U/L (15-37); Alanine Aminotransfer ALT/SGPT 25 U/L (13-56); Albumin, Serum 3.7 g/dL (3.2-5.0); Alkaline Phosphatase 136 U/L (45-117); Anion Gap 6 (5-15); BUN 13 mg/dL (7-18); BUN/Creat Ratio 18.1 RATIO (10-20); Calcium,Total 8.7 mg/dL (8.5-10.1); Chloride 109 mmol/L (98-107); Creatinine, Serum 0.72 mg/dL (0.55-1.02); EST Glomerular Filtration Rate 102 mL/min (>60); Est Glom Filt Rate - Afr Amer 124 mL/min (>60); Estimated Creatinine Clearance 91.18 ml/min; Globulin 4.6 g/dL (2.2-4.2); Glucose 102 mg/dL (74-106); Lipase 20 U/L (13-75); Protein, Total 8.3 g/dL (6.4-8.2); Sodium Level 136 mmol/L (136-145)
[2022-12-01 12:35] VITALS: BP 128/88; PULSE 114; RESP 16; O2SAT 100
[2022-12-01] MEDS: Potassium Chloride Oral Tablet 20 MEQ 40 MEQ PO (13:44)
[2022-12-01 13:54] LABS: Bacteria 0 SEEN /hpf (None Seen); Mucous, Urine 0 SEEN /hpf (<or=2+); Red Blood Cells-Urine 0 SEEN /hpf (0-5); Squamous Epithelial Cells - UA 0 SEEN /hpf (5-10)
[2022-12-01 14:00] VITALS: RESP 18
[2022-12-01 14:08] LABS: Color, Urine Yellow (Yellow); Glucose, Dipstick Normal (Normal); Ketone-Dipstick Negative (Negative); Leukocyte Esterase-Dipstick 25 /ul (Negative); Nitrite-Dipstick Negative (Negative); Occult Blood-Urine 10 /ul (Negative); Protein-Dipstick 30 mg/dl (Negative); Urine Bilirubin Dipstick Negative (Negative); Urine Clarity Clear (Clear); Urine Urobilinogen Normal (Normal); Urine pH 6.5 (5.0 - 8.0)
[2022-12-01 14:26] LABS: White Blood Cells 0-5 SEEN /hpf (0-5)
== END 2022-12-01 14:51 | disposition home or self-care (01) ==
PROVIDERS: Emergency Provider Emergency Medicine; PCP Internal Medicine; Visit Provider Emergency Medicine
DX: A08.4 Viral intestinal infection, unspecified (principal); E66.01 Morbid (severe) obesity due to excess calories; Z86.711 Personal history of pulmonary embolism; Z79.899 Other long term (current) drug therapy
CPT/HCPCS: 74177; 80053; 81001; 83690; 84703; 85025; 96361; 96374; 96375; 99283; J7030; Q9967; A4216; J2405

== ENCOUNTER → 2023-12-04 | Outpatient (CLI) | payer OTHER, MEDICAID, SELFPAY ==
[2023-12-04 08:20] LABS: Absolute Lymphocyte Count 2.38 X10^3/uL (0.83-4.51); Absolute Neutrophil Count 3.7 X10^3/uL (2.0-7.7); Basophil# 0.03 X10^3/uL; Basophil% 0.5 % (0-1); Eosinophils% 1.5 % (0-5); Hematocrit 38.9 % (37-47); Lymphocyte # 2.38 X10^3/ul (0.83-4.51); Lymphocyte % 35.9 % (19-41); Mean Corp Hgb Conc 30.8 g/dL (32-36); Mean Corpuscular Hgb 24.6 pg (27.0-32.0); Mean Corpuscular Volume 79.7 fL (81-99); Mean Platelet Vol. 9.2 fl (6.2-12.0); Monocyte# 0.36 X10^3/uL; Monocyte% 5.4 % (0-10); NRBC Flagged by Analyzer 0 % (0-5); Neutrophil # 3.74 X10^3/uL (2.7-7.7); Neutrophil % 56.4 % (47-70); Platelet Count 400 K/mm3 (150-450); RBC Distribution Width CV 14.2 % (11.6-14.6); RBC Distribution Width SD 41.2 fl (35.1-43.9); Red Blood Count 4.88 M/mm3 (4.2-5.4); White Blood Count 6.6 K/mm3 (4.4-11.0)
[2023-12-04 08:56] LABS: ALB/GLOB Ratio 0.9 RATIO (0.9-2.4); AST(SGOT) 12 U/L (15-37); Alanine Aminotransfer ALT/SGPT 19 U/L (13-56); Albumin, Serum 3.5 g/dL (3.2-5.0); Alkaline Phosphatase 112 U/L (45-117); Anion Gap 4 (5-15); BUN 13 mg/dL (7-18); BUN/Creat Ratio 18.7 RATIO (10-20); Calcium,Total 8.8 mg/dL (8.5-10.1); Chloride 106 mmol/L (98-107); Cholesterol 149 mg/dL (200); EST Glomerular Filtration Rate 105 mL/min (>60); Est Glom Filt Rate - Afr Amer 127 mL/min (>60); Ferritin 4 ng/mL (8-252); Globulin 3.9 g/dL (2.2-4.2); Glucose 90 mg/dL (74-106); High Density Lipoprotein 37 mg/dL; Iron 44 ug/dL (50-170); Iron Binding Capacity,Total 372 ug/dL (250-450); Protein, Total 7.4 g/dL (6.4-8.2); Sodium Level 136 mmol/L (136-145); T4 Free Direct 0.99 ng/dL (0.76-1.46); Thyroid Stim Hormone (TSH) 1.37 uIU/mL (0.358-3.74); Triglycerides 127 mg/dL; Very Low Density Lipoprotein 25 mg/dL (5-40)
[2023-12-04 09:19] LABS: Hemoglobin A1c 5.2 % (3.8-5.6)
== END | disposition home or self-care (01) ==
LOC: LAB 07:47
PROVIDERS: PCP Nurse Practitioner; Referring Provider Nurse Practitioner; Visit Provider Nurse Practitioner
DX: N92.0 Excessive and frequent menstruation with regular cycle (principal); E66.01 Morbid (severe) obesity due to excess calories; F41.9 Anxiety disorder, unspecified
CPT/HCPCS: 36415; 80053; 80061; 82728; 83036; 83540; 83550; 84439; 84443; 85025

== ENCOUNTER → 2023-12-06 | Outpatient (CLI) | payer OTHER, MEDICAID, SELFPAY ==
--- NOTE | 2023-12-06 09:22 | RAD_ITS ---
STUDY: X-RAY - RIGHT FOOT CLINICAL: Female, 28 years old. Pain following foot injury. TECHNIQUE: 3 view(s) of the foot. COMPARISON: Comparison is made with prior study dated July 13, 2013. FINDINGS: There is a small plantar calcaneal spur. Normal visualized subtalar, talonavicular, calcaneocuboid, tarsal and tarsometatarsal articulations. Normal metatarsi. Normal metatarsophalangeal joint of the great toe. There is a bipartite tibial sesamoid. Normal interphalangeal joint of the great toe. Normal phalanges of the great toe. Normal second through fifth metatarsophalangeal joints. Normal interphalangeal joints and phalanges of the lesser toes. The soft tissue structures are unremarkable. RAD/Foot min 3 Views IMPRESSION: Small plantar spur. No acute abnormality is seen. Electronically Signed: Reji Burr MD at 9:44 EDT ,
--- NOTE | 2023-12-06 09:24 | RAD_ITS ---
STUDY: X-RAY - RIGHT ANKLE REASON FOR EXAM: Female, 28 years old. Right ankle pain following injury. TECHNIQUE: 3 view(s) of the ankle. COMPARISON: None. FINDINGS: Normal visualized distal tibia and fibula. Normal medial and lateral malleoli. Normal tibiotalar articulation and ankle mortise. Small calcaneal spurs. The visualized subtalar, talonavicular, calcaneocuboid and tarsal articulations are normal. The soft tissue structures are unremarkable. RAD/Ankle min 3 Views IMPRESSION: Small calcaneal spurs. No acute abnormality is seen. Electronically Signed: Reji Burr MD at 9:55 EDT ,
== END | disposition home or self-care (01) ==
LOC: MTRAD 09:22
PROVIDERS: PCP Nurse Practitioner; Referring Provider Physician Assistant Surgical; Visit Provider Physician Assistant Surgical
DX: S99.911A Unspecified injury of right ankle, initial encounter (principal); S99.921A Unspecified injury of right foot, initial encounter; X58.XXXA Exposure to other specified factors, initial encounter
CPT/HCPCS: 73610; 73630

== ENCOUNTER 2023-12-22 13:10 | Emergency (ER) | payer OTHER, MEDICAID, SELFPAY ==
[2023-12-22 13:11] VITALS: BP 146/91; PULSE 79; RESP 16; TEMP 36.6; O2SAT 98; BMI 47.9
--- NOTE | 2023-12-22 14:00 | RAD_ITS ---
HISTORY: injury. TECHNIQUE: XR Knee Complete 4 Views or More. COMPARISON: None. FINDINGS: BONES : No acute fracture identified. Mineralization unremarkable. JOINTS: No dislocation. Joint spaces maintained. SOFT TISSUES: Mild anterior soft tissue swelling. RAD/Knee 4 or More Views IMPRESSION: No acute fracture or dislocation identified in the left knee. Electronically Signed: Arielle Montes MD at 14:11 EDT ,
--- NOTE | 2023-12-22 14:03 | EDS_ITS ---
HPI History of Present Illness Chief Complaint: Lower Extremity Injury Informant: patient Narrative Narrative: 28-year-old female presenting to the emergency room chief complaint of knee pain. Patient states that yesterday around 1600 hrs. she went to get off a boat and stepped up onto the boat chair and her knee twisted and she fell forward. She is able to catch herself before she went down. She notes pain medially of the left knee but also over both sides of her patella and over the posterior medial aspect of the knee. She notes it hurts very much to go into full extension as well as to full flexion. She went to urgent care for they did not have imaging capabilities. She states they gave her a knee immobilizer. [facility] Medical History Elevated d-dimer History of pulmonary embolism GERD (gastroesophageal reflux disease) Complete AV block Presence of cardiac pacemaker Obesity, morbid, BMI 40.0-49.9 Panic disorder OCD (obsessive compulsive disorder) ADHD (attention deficit hyperactivity disorder) Exposure to confirmed case of COVID-19 Third degree heart block Migraine Abnormal test GBS (group B streptococcus) UTI complicating Bilateral pulmonary embolism Pulmonary embolism Constipation Nausea Shortness of breath Anxiety Fatigue Home Medications ?Medication ?Instructions ?Recorded ?Last Taken ?Type hydroxyzine pamoate 25 mg capsule 25 mg PO TID PRN Anxiety 90 days 12/03/23 Unknown Rx (Vistaril) #180 caps ondansetron 4 mg disintegrating 4 mg PO Q12H PRN nausea and 12/03/23 Unknown Rx tablet vomiting #90 tabs rivaroxaban 20 mg tablet (Xarelto) 20 mg PO QDAY #90 tabs 12/03/23 Unknown Rx sertraline 100 mg tablet (Zoloft) 200 mg (2 x 100 mg) PO DAILY #90 12/03/23 Unknown Rx tabs ferrous sulfate 325 mg (65 mg 324 mg (0.9969 x 325 mg (65 mg 12/05/23 Unknown Rx iron) tablet,delayed release iron)) PO Q OTHER DAY #60 tabs tirzepatide 2.5 mg/0.5 mL 2.5 mg (0.5 mL) subcut QWEEK 4 12/05/23 Unknown Rx subcutaneous pen injector weeks #2 mL Allergy/AdvReac Type Severity Reaction Status Date / Time No Known Allergies Allergy Verified 12/22/23 13:12 Family History Mother Diabetes Grandfather CHF (congestive heart failure) Surgical History History of cholecystectomy (~2019) Hx of cardiac pacemaker Hx of wisdom tooth extraction Social History household members: spouse housing: house number of children: 2 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 Smoking Status: Never smoker second hand exposure: No alcohol intake: never substance use type: does not use caffeine: Yes Type: coffee what type of physical activity do you participate in: none seatbelt use: always do you feel safe at home: Yes 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[employer] ROS ED Constitutional Constitutional ED: Denies chills or weight loss Eyes Eyes: Denies change in vision or diplopia ENT ENT ED: Denies ear pain, rhinorrhea or sore throat Cardiovascular Cardiovascular: Denies chest pain, orthopnea, palpitations or racing heartbeat Respiratory/Chest Respiratory/Chest: Denies cough, dyspnea or orthopnea Gastrointestinal Gastrointestinal: Denies abdominal pain, diarrhea, nausea or vomiting Genitourinary Genitourinary ED: Denies dysuria, hematuria or urinary frequency Musculoskeletal Musculoskeletal: Reports other Details: Left knee pain ; Denies arthralgias, myalgias or neck pain Integumentary Denies abscess or rash Neurologic Neurologic: Denies headache(s) or weakness Psychiatric Psychiatric: Denies anxiety, depression, suicidal ideation or suicidal thoughts Endocrine Endocrinology: Denies polydipsia, polyphagia or polyuria Allergic/Immunologic Allergic/Immunologic ED: Denies mouth swelling, tongue swelling or urticaria EXAM Physical Exam Const Vital Signs: 12/22/23 13:11 Temperature 98 F Temperature Source Temporal Pulse Rate 79 Respiratory Rate 16 Blood Pressure 146/91 H Blood Pressure Mean 109 Pulse Ox 98 Oxygen Delivery Method Room Air Positive well nourished and well developed General Appearance ED: well developed HEENT Reports normocephalic, head/scalp atraumatic and moist mucous membranes Eyes PERRL and EOMs intact bilaterally Neck no lymphadenopathy, supple and no JVD Resp normal respiratory effort and clear to auscultation bilaterally Cardio regular rate, regular rhythm and no murmurs GI normal to inspection, nondistended, normoactive bowel sounds and non-tender Palpation: soft Back/Spine no CVA tenderness and normal ROM Extremity Extremity Narrative: There is no palpable effusion. Ligaments appear stable though she has pain with medial stressing. She has tenderness on the inferior medial aspect of the MCL. She has some mild tenderness along the medial joint line. Patella is nontender. General Extremety ED: Negative for edema General Extremity: Negative for edema Neuro oriented x3 and CN's II-XII intact bilaterally Sensorium / Orientation: alert Motor Exam: strength 5/5 throughout Psych mental status grossly normal Mood & Affect: Negative for depressed or tearful Skin no rashes or lesions noted and no wounds MDM MDM MDM Narrative Medical decision making narrative: My independent interpretation of the plain films of the left knee is no acute fracture. Radiology concurs. Patient placed in Jonnie wrap given crutches. We talked about the possibility of meniscal injury or MCL tear. She understands in 10 to 14 days if she does not improve she will need to follow-up with orthopedics. History & Record Review Discussion w/independent historian: Patient and Family Radiography Diagnostic Testing: Clinical Impression(s) from Imaging Studies Knee X-Ray 12/22/23 14:00 IMPRESSION: No acute fracture or dislocation identified in the left knee. Electronically Signed: Arielle Montes MD at 14:11 EDT Reading Location ID and State: [address] [place] [address] Tel , Service support , Discharge Plan Triage Chief Complaint: Lower Extremity Injury ED Provider: Elliott Roque Dx/Rx/DC Orders Clinical Impression: Acute pain of left knee, Left knee sprain Instructions: ED Knee Sprain Prescriptions: No Action ondansetron 4 mg tablet,disintegrating 4 mg PO Q12H PRN (Reason: nausea and vomiting) Qty: 90 1RF sertraline [Zoloft] 100 mg tablet 200 mg PO DAILY Qty: 90 1RF Xarelto 20 mg tablet 20 mg PO QDAY Qty: 90 1RF hydroxyzine pamoate [Vistaril] 25 mg capsule 25 mg PO TID PRN (Reason: Anxiety) 90 Days Qty: 180 1RF tirzepatide 2.5 mg/0.5 mL pen injector 2.5 mg subcut QWEEK 28 Days Qty: 2 0RF Rx Instructions: Administer subcutaneously once per week x 4 weeks ferrous sulfate 325 mg (65 mg iron) tablet,delayed release (DR/EC) 324 mg PO Q OTHER DAY Qty: 60 0RF Primary Care Provider: Jewels Choi Referrals: Jimy Leblanc MD [Med Staff - Active Staff] - 10-14 Days if not better Jewels Choi, AGENCY TRAINER-C [Primary Care Provider] - Print Language: Greenlandic Disposition Disposition: Home, Self Care
[2023-12-22 14:39] VITALS: BP 136/64; PULSE 64; RESP 14; TEMP 36.4; O2SAT 100
== END 2023-12-22 14:40 | disposition home or self-care (01) ==
PROVIDERS: Emergency Provider Emergency Medicine; PCP Nurse Practitioner; Visit Provider Emergency Medicine
DX: S83.92XA Sprain of unspecified site of left knee, initial encounter (principal); X58.XXXA Exposure to other specified factors, initial encounter
CPT/HCPCS: 73564; 99283

== ENCOUNTER 2024-05-06 08:38 | Emergency (ER) | payer OTHER, MEDICAID, SELFPAY ==
[2024-05-06 08:39] VITALS: BP 114/63; PULSE 95; RESP 18; TEMP 36.6; O2SAT 100
--- NOTE | 2024-05-06 09:06 | EDS_ITS ---
HPI HPI - GI History of Present Illness Chief Complaint: Abd Pain Informant: patient Narrative Narrative: Patient is a 28-year-old female with history of factor V Leiden (on Xarelto), anxiety and complete heart block status post pacemaker presenting with sudden onset of right-sided abdominal pain. Patient states she felt well when she woke up this morning and then while she was driving after drinking her daughter to work she suddenly had a severe sharp pain in her right abdomen. States it radiates up and down. Does have some radiation to her groin. Denies radiation to her back. Has associated nausea. Denies any history of kidney stones or having pain like this before. States she felt fine when she woke up this morning. Denies any recent urinary symptoms. Does have a history of cholecystectomy. Denies any recent change in her bowel movements. No other complaints or concerns reported at this time. [facility] Medical History Left knee pain Hx of blood clots Elevated d-dimer History of pulmonary embolism GERD (gastroesophageal reflux disease) Complete AV block Presence of cardiac pacemaker Obesity, morbid, BMI 40.0-49.9 Panic disorder OCD (obsessive compulsive disorder) ADHD (attention deficit hyperactivity disorder) Exposure to confirmed case of COVID-19 Third degree heart block Migraine Abnormal test GBS (group B streptococcus) UTI complicating Bilateral pulmonary embolism Pulmonary embolism Constipation Nausea Shortness of breath Anxiety Fatigue Home Medications ?Medication ?Instructions ?Recorded ?Last Taken ?Type hydroxyzine pamoate 25 mg capsule 25 mg PO TID PRN Anxiety 90 days 12/03/23 Unknown Rx (Vistaril) #180 caps ondansetron 4 mg disintegrating 4 mg PO Q12H PRN nausea and 12/03/23 Unknown Rx tablet vomiting #90 tabs rivaroxaban 20 mg tablet (Xarelto) 20 mg PO QDAY #90 tabs 12/03/23 Unknown Rx sertraline 100 mg tablet (Zoloft) 200 mg (2 x 100 mg) PO DAILY #90 12/03/23 Unknown Rx tabs ferrous sulfate 325 mg (65 mg 324 mg (0.9969 x 325 mg (65 mg 12/05/23 Unknown Rx iron) tablet,delayed release iron)) PO Q OTHER DAY #60 tabs semaglutide 0.25 mg or 0.5 mg (2 0.25 mg (0.368 mL) subcut QWEEK #3 04/16/24 Unknown Rx mg/3 mL) subcutaneous pen injector mL triamcinolone acetonide 0.1 % 1 applic topical QDAY #15 grams 04/20/24 Unknown Rx topical cream benzonatate 200 mg capsule 200 mg PO TID PRN cough #20 caps 04/27/24 Unknown Rx methylprednisolone 4 mg tablets in See Rx Instructions PO PER PKG DIR 04/27/24 Unknown Rx a dose pack (Medrol (Sage)) #21 tabs Allergy/AdvReac Type Severity Reaction Status Date / Time No Known Allergies Allergy Verified 05/06/24 08:38 Family History Mother Diabetes Grandfather CHF (congestive heart failure) Surgical History History of cholecystectomy (~2018) Hx of cardiac pacemaker Hx of wisdom tooth extraction Social History household members: spouse housing: house number of children: 2 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 Smoking Status: Never smoker second hand exposure: No alcohol intake: never substance use type: does not use caffeine: Yes Type: coffee what type of physical activity do you participate in: none seatbelt use: always do you feel safe at home: Yes 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[employer] ED Constitutional Constitutional ED: Denies chills or fever(s) Respiratory/Chest Respiratory/Chest: Denies cough Gastrointestinal Gastrointestinal: Reports abdominal pain and nausea; Denies constipation, diarrhea, melena or vomiting Genitourinary Genitourinary ED: Denies dysuria or hematuria Musculoskeletal Musculoskeletal: Denies arthralgias, back pain or myalgias Integumentary Denies rash Neurologic Neurologic: Denies weakness EXAM Physical Exam Const Vital Signs: 05/06/24 08:39 05/06/24 10:38 05/06/24 12:00 Temperature 97.8 F Temperature Source Temporal Pulse Rate 95 64 69 Respiratory Rate 18 18 14 Blood Pressure 114/63 124/78 H 127/64 H Blood Pressure Mean 80 93 85 Pulse Ox 100 98 99 Oxygen Delivery Method Room Air Room Air Room Air 05/06/24 13:32 Temperature 97.9 F Temperature Source Pulse Rate 92 Respiratory Rate 19 H Blood Pressure 138/90 H Blood Pressure Mean 106 Pulse Ox 99 Oxygen Delivery Method Positive well nourished and well developed General Appearance ED: well developed HEENT Reports moist mucous membranes Eyes PERRL Neck supple Resp normal respiratory effort and clear to auscultation bilaterally Cardio regular rate and regular rhythm GI non-distended GI Narrative: Patient does not have reproducible tenderness but points to her right lower quadrant as her area of pain. Auscultation: normoactive bowel sounds Palpation: soft and tender RLQ; Negative for guarding or rigid Back/Spine no CVA tenderness Extremity full ROM Neuro Sensorium / Orientation: alert Motor Exam: Negative for general weakness Psych mental status grossly normal and thought process normal MDM MDM MDM Narrative Medical decision making narrative: Patient valuated for sudden onset of right sided abdominal pain. Vital signs are normal. Differential includes renal colic, pyelonephritis, ruptured ovarian cyst, ovarian torsion and appendicitis. Given she did not have any preceding symptoms lower suspicion for appendicitis or pyelonephritis. Patient denies any history of ovarian cyst. Will give IV Toradol, morphine and Zofran as well as fluids. Will obtain labs as well as CT of the abdomen pelvis and reevaluate. Patient is improvement of symptoms on repeat evaluation. Workup however is largely negative for cause of her pain. She does not have a transaminitis, urinary tract infection, bilirubin is normal and his normal white blood cell count. CT does not show any acute process to explain her symptoms. I did discuss that this could be like an ovarian cyst and offered a pelvic ultrasound but patient declined at this time. Patient will be discharged home with outpatient follow-up with ACCOUNT DEVELOPER and return precautions. Encouraged to return if she has a worsening or progression of her pain/symptoms at that time we can determine if further imaging is indicated. She verbalized agreement or stands plan. Discharged home in stable condition Lab Data Attestation: I reviewed the patient's lab results. Labs: Laboratory Results - last 24 hr 05/06/24 05/06/24 09:50 10:53 WBC 6.3 RBC 5.02 Hgb 12.4 Hct 39.8 MCV 79.3 L MCH 24.7 L MCHC 31.2 L RDW Std Deviation 42.5 RDW Coeff of Rocael 14.9 H Plt Count 386 MPV 8.8 Immature Gran % (Auto) 0.500 Neut % (Auto) 64.4 Lymph % (Auto) 28.3 [place] % (Auto) 5.0 Eos % (Auto) 1.3 Baso % (Auto) 0.5 Absolute Neuts (auto) 4.0 Absolute Lymphs (auto) 1.77 Nucleated RBC % 0 Sodium 138 Potassium 3.8 Chloride 106 Carbon Dioxide 23.0 Anion Gap 9 BUN 14 Creatinine 0.82 Est GFR (MDRD) Af Amer 105 Est GFR (MDRD) Non-Af 87 BUN/Creatinine Ratio 17.1 Glucose 119 H Calcium 9.6 Total Bilirubin 0.40 AST 18 ALT 23 Alkaline Phosphatase 131 H Total Protein 8.3 H Albumin 3.7 Globulin 4.6 H Albumin/Globulin Ratio 0.8 L Urine Color Yellow Urine Clarity Sl. Cloudy Urine pH 5.0 Ur Specific [place] 1.025 Urine Protein Negative Urine Glucose (UA) Normal Urine Ketones Negative Urine Occult Blood Negative Urine Nitrite Negative Urine Bilirubin Negative Urine Urobilinogen Normal Ur Leukocyte Esterase 25 H Urine RBC 0 SEEN Urine WBC 0-5 SEEN Ur Squamous Epith Cells 5-10 SEEN Urine Bacteria 0 SEEN Urine Mucus 1+ Urine Test Negative Radiography Diagnostic Testing: Clinical Impression(s) from Imaging Studies Abdomen/Pelvis CT 05/06/24 11:30 IMPRESSION: Status post cholecystectomy. Hepatomegaly and mild splenomegaly. Electronically Signed: Reji Burr MD at 12:21 EDT Reading Location ID and State: [address] [place] [address] , Service support , Discharge Plan Triage Chief Complaint: Abd Pain ED Provider: Antoinette George Dx/Rx/DC Orders Clinical Impression: Right sided abdominal pain Instructions: ED Abdominal Pain Unkn Cause Fem Prescriptions: No Action ondansetron 4 mg tablet,disintegrating 4 mg PO Q12H PRN (Reason: nausea and vomiting) Qty: 90 1RF sertraline [Zoloft] 100 mg tablet 200 mg PO DAILY Qty: 90 1RF Xarelto 20 mg tablet 20 mg PO QDAY Qty: 90 1RF hydroxyzine pamoate [Vistaril] 25 mg capsule 25 mg PO TID PRN (Reason: Anxiety) 90 Days Qty: 180 1RF benzonatate 200 mg capsule 200 mg PO TID PRN (Reason: cough) Qty: 20 0RF methylprednisolone [Medrol (Sage)] 4 mg tablets,dose pack See Rx Instructions PO PER PKG DIR Qty: 21 0RF Rx Instructions: PO PER PKG DIR ferrous sulfate 325 mg (65 mg iron) tablet,delayed release (DR/EC) 324 mg PO Q OTHER DAY Qty: 60 0RF semaglutide 0.25 mg or 0.5 mg (2 mg/3 mL) pen injector 0.25 mg subcut QWEEK Qty: 3 0RF Rx Instructions: for 4 weeks triamcinolone acetonide 0.1 % cream 1 applic topical QDAY Qty: 15 0RF Primary Care Provider: Jewels Choi Referrals: Jewels Choi, CALL OR CONTACT CENTRE TEAM LEADER-C [Primary Care Provider] - Activity Restrictions/Additional Instructions: The exact cause of your symptoms is not clear today however your workup was normal. As we discussed if your symptoms return or worsen please return to the emergency room. We can always do a pelvic ultrasound to ensure there is no pelvic/ovarian pathology which can cause your symptoms. Please follow-up with your ACCOUNT DEVELOPER as well as your general family doctor. Take Tylenol as needed for pain. Print Language: Belarusian Disposition Disposition: Home, Self Care Discharge Date/Time: 05/06/24 14:00
[2024-05-06] MEDS: 0.9% Normal Saline (1000mL) 1,000 ML 999 ML IV (09:52)
[2024-05-06 10:04] LABS: Absolute Lymphocyte Count 1.77 X10^3/uL (0.83-4.51); Basophil# 0.03 X10^3/uL; Basophil% 0.5 % (0-1); Eosinophil# 0.08 X10^3/uL; Eosinophils% 1.3 % (0-5); Hematocrit 39.8 % (37-47); Hemoglobin 12.4 g/dL (12.0-15.0); Lymphocyte # 1.77 X10^3/ul (0.83-4.51); Lymphocyte % 28.3 % (19-41); Mean Corp Hgb Conc 31.2 g/dL (32-36); Mean Corpuscular Hgb 24.7 pg (27.0-32.0); Mean Corpuscular Volume 79.3 fL (81-99); Mean Platelet Vol. 8.8 fl (6.2-12.0); Monocyte# 0.31 X10^3/uL; NRBC Flagged by Analyzer 0 % (0-5); Neutrophil # 4.04 X10^3/uL (2.7-7.7); Neutrophil % 64.4 % (47-70); Platelet Count 386 K/mm3 (150-450); RBC Distribution Width CV 14.9 % (11.6-14.6); RBC Distribution Width SD 42.5 fl (35.1-43.9); Red Blood Count 5.02 M/mm3 (4.2-5.4); White Blood Count 6.3 K/mm3 (4.4-11.0)
[2024-05-06 10:38] VITALS: BP 124/78; PULSE 64; RESP 18; O2SAT 98
[2024-05-06] MEDS: Ondansetron 4 MG/2 ML Vial IV (10:50)
[2024-05-06] MEDS: Ketorolac 15 MG/ML Vial IV (10:50)
[2024-05-06 11:01] LABS: Bacteria 0 SEEN /hpf (None Seen); Red Blood Cells-Urine 0 SEEN /hpf (0-5)
[2024-05-06 11:06] LABS: Color, Urine Yellow (Yellow); Glucose, Dipstick Normal (Normal); Ketone-Dipstick Negative (Negative); Leukocyte Esterase-Dipstick 25 /ul (Negative); Nitrite-Dipstick Negative (Negative); Occult Blood-Urine Negative /ul (Negative); Protein-Dipstick Negative (Negative); Specific Gravity, Urine 1.025 (1.002-1.030); Urine Bilirubin Dipstick Negative (Negative); Urine Clarity Sl. Cloudy (Clear); Urine Urobilinogen Normal (Normal)
[2024-05-06 11:08] LABS: ALB/GLOB Ratio 0.8 RATIO (0.9-2.4); AST(SGOT) 18 U/L (15-37); Alanine Aminotransfer ALT/SGPT 23 U/L (13-56); Albumin, Serum 3.7 g/dL (3.2-5.0); Alkaline Phosphatase 131 U/L (45-117); Anion Gap 9 (5-15); BUN 14 mg/dL (7-18); BUN/Creat Ratio 17.1 RATIO (10-20); Calcium,Total 9.6 mg/dL (8.5-10.1); Chloride 106 mmol/L (98-107); Creatinine, Serum 0.82 mg/dL (0.55-1.02); EST Glomerular Filtration Rate 87 mL/min (>60); Est Glom Filt Rate - Afr Amer 105 mL/min (>60); Globulin 4.6 g/dL (2.2-4.2); Glucose 119 mg/dL (74-106); Potassium 3.8 mmol/L (3.5-5.1); Protein, Total 8.3 g/dL (6.4-8.2); Sodium Level 138 mmol/L (136-145)
[2024-05-06 11:15] LABS: Squamous Epithelial Cells - UA 5-10 SEEN /hpf (5-10); White Blood Cells 0-5 SEEN /hpf (0-5)
[2024-05-06 11:16] LABS: Internal QC Validated? YES +Cl - CLEAR BKGD; Mucous, Urine 1+ /hpf (<or=2+); Pregnancy, Urine Negative Negative; Record Kit Lot#,Urine Preg HCG0000772476
--- NOTE | 2024-05-06 11:30 | CT_ITS ---
STUDY: CT ABDOMEN AND PELVIS WITHOUT CONTRAST REASON FOR EXAM: Female, 28 years old. Abdominal pain. RADIATION DOSAGE (If Supplied By Facility): CTDIvol = ( 23.79 ) mGy, DLP = ( 1301.75 ) mGycm TECHNIQUE: Transaxial images were obtained from the dome of the diaphragm to the symphysis pubis without oral contrast, and without intravenous contrast. Sagittal and coronal images were reconstructed. Individualized dose optimization techniques were used for this CT. COMPARISON: Comparison is made with prior study dated December 01, 2022. FINDINGS: The visualized lung bases are unremarkable. A pacemaker lead is seen. Hepatomegaly. The patient is status post cholecystectomy. Borderline splenomegaly. Normal pancreas. Normal bilateral adrenal glands. Normal right kidney. Normal left kidney. There is a small hiatal hernia. Normal small intestine. Normal colon. The appendix is visualized and appears normal. Normal abdominal aorta. Normal inferior vena cava. Normal retroperitoneum. Normal urinary bladder. Normal abdominal wall. Normal osseous structures. CT/Abdomen/Pelvis without Cont IMPRESSION: Status post cholecystectomy. Hepatomegaly and mild splenomegaly. Electronically Signed: Reji Burr MD at 12:21 EDT ,
[2024-05-06 12:00] VITALS: BP 127/64; PULSE 69; RESP 14; O2SAT 99
[2024-05-06 13:32] VITALS: BP 138/90; PULSE 92; RESP 19; TEMP 36.6; O2SAT 99
== END 2024-05-06 14:00 | disposition home or self-care (01) ==
PROVIDERS: Emergency Provider Emergency Medicine; PCP Nurse Practitioner; Visit Provider Emergency Medicine
DX: R10.9 Unspecified abdominal pain (principal); Z79.01 Long term (current) use of anticoagulants; Z86.711 Personal history of pulmonary embolism
CPT/HCPCS: 74176; 80053; 81001; 81025; 85025; 96361; 96374; 96375; 99283; J7030; A4216; J2405

== ENCOUNTER → 2024-09-08 | Outpatient (CLI) | payer OTHER, SELFPAY ==
--- NOTE | 2024-09-08 09:41 | RAD_ITS ---
EXAM: XR Chest, 2 Views CLINICAL INDICATION: TECHNIQUE: Frontal and lateral views of the chest. COMPARISON: No relevant prior studies available. FINDINGS: LUNGS AND PLEURAL SPACES: Pulmonary venous congestion. No consolidation. No pneumothorax. HEART: Unremarkable. No cardiomegaly. MEDIASTINUM: Unremarkable. Normal mediastinal contour. BONES/JOINTS: Unremarkable. No acute fracture. TUBES, LINES AND DEVICES: Left-sided cardiac pacemaker. RAD/Chest PA and Lateral IMPRESSION: Pulmonary venous congestion. Reading [facility]
== END | disposition home or self-care (01) ==
PROVIDERS: PCP Family Medicine; Referring Provider Nurse Practitioner; Visit Provider Nurse Practitioner
DX: U07.1 COVID-19 (principal); J10.1 Influenza due to other identified influenza virus with other respiratory manifestations
CPT/HCPCS: 71046